=== PATIENT | female | born 1970 | race Caucasian/White ===

== ENCOUNTER 2017-01-19 01:34 | Emergency (ER) | payer OTHER ==
[~2017-01-19 01:34] MED LIST: ALBINS/ INH; DIPH-416 PO; DIPH25CA5 PO; EPP3/2 IM; LAMO150T32 PO; LEVE250T PO; LEVE500T26 PO; NAPR1TAB9 PO; ONDA8TAB62 SL
[2017-01-19 01:37] VITALS: TEMP 36.8
[2017-01-19] MEDS ORDERED: SODIUM CHLORIDE 0.9% 1000ML 500 ML IV STA (01:52)
[2017-01-19] MEDS ORDERED: SODIUM CHLORIDE 0.9% 1000ML 1,000 ML IV STA (01:52)
--- NOTE | 2017-01-19 02:00 | EMERGENCY ROOM VISIT NOTE ---
History Report prepared by Devanibtushar: Anisa Godoy Under the Supervision of: Dr. Brian Morillo M.D. First contact with patient: 01:43 Chief Complaint: CONFUSION Stated Complaint: CONFUSION/HIP AND HAND PAIN Nursing Triage Summary: patient is visually impaired and began walking to work around 2215 when she became disoriented and states she forgets what happened. patient called 911 at 0053 and was discovered crawling on the ground in a park behind her house. patient does not recall what happened and is unsure if she fell or had any LOC. patient currenlty alert to person and place. History of Present Illness The patient is a 46 year old female who presents to the Emergency Room with complaints of an episode of confusion that started last night. Nursing reports at approximately 2215, the patient left home to walk to [facility], where she works. At 0053, EMS was dispatched to a disoriented person crawling on the ground in a park. The patient had only made it to a park near her home. She is visually impaired and states she normally gets a ride to work, but missed it, so she was going to walk last night. She reports the events of last night and this morning are "fuzzy" and she still cannot remember everything that happened. She complains of a mild headache and pain in her right hip and wrist. She does not know if she hit her head or lost consciousness at all. She states she has felt well recently, just tired from working third shift. She has a history of seizures and states she still takes Keppra and Lamictal as prescribed. Source of History: patient, EMS, nursing staff History Limited By: other (confusion) Onset: 2214 this evening Position: other (global) Associated Symptoms: + fatigue, + headache Review of Systems See HPI for pertinent positives & negatives. A total of 10 systems reviewed and were otherwise negative. Past Medical & Surgical Medical Problems: (1) Dehydration Surgical Problems: (1) History of cholecystectomy Family History Diabetes mellitus Heart disease Hypertension Social History Smoking Status: Current Every Day Smoker Drug Use: none Marital Status: single Housing Status: lives alone Occupation Status: employed Current/Historical Medications Scheduled Albuterol Sulf (Proventil 0.083% 2.5MG/3ML), 2.5 MG INH QID PRN Epinephrine (Epipen), 0.3 MG IM UD Lamotrigine (Lamictal), 150 MG PO BID Levetiracetam (Keppra), 500 MG PO BID Scheduled PRN Diphenhydramine Hcl (Benadryl), 25 MG PO Q4H PRN for Itching Diphenoxylate/Atropine (Lomotil), 1 TAB PO QID PRN for Diarrhea Naproxen (Aleve), 220 MG PO Q12 PRN for Pain Ondansetron Odt (Zofran Odt), 8 MG SL BID PRN for Nausea Allergies Coded Allergies: Aspirin (Verified Allergy, Severe, stopped breathing per pt, 01/19/17) Bee Venom (Verified Allergy, Severe, ANAPHYLAXIS, 01/19/17) Codeine (Verified Allergy, Severe, difficulty breathing, 01/19/17) Erythromycin (Verified Allergy, Severe, anaphylaxis, 01/19/17) Flu Virus Vaccine (Verified Allergy, Severe, SEIZURES, 01/19/17) Ibuprofen (Verified Allergy, Severe, RESPIRATORY DIFFICULTY, 01/19/17) Penicillins (Verified Allergy, Severe, anaphylaxis, 01/19/17) Valproic Acid and Related (Verified Allergy, Severe, "LOCK JAW", 01/19/17) Ciprofloxacin (Verified Allergy, Intermediate, SEVERE RASH, FLUSHING, ) Sulfa Antibiotics (Verified Allergy, Intermediate, HIVES TO SULFA DRUGS, ) Latex1 -Allergic Contact Dermititis (Verified Allergy, Mild, "BREAK OUT", 01/19/17) Tomato (Verified Allergy, Unknown, Unknown, 01/19/17) Pt told RD about allergy to tomatoes during prior adm. Kitchen aware of allergy. Lorazepam (Verified Adverse Reaction, Intermediate, AGITATED, HALLUCINATIONS, 01/19/17) Morphine (Verified Adverse Reaction, Intermediate, AGITATED, HALLCINATIONS , 01/19/17) Terbutaline (Verified Adverse Reaction, Intermediate, PASSES OUT, 01/19/17) Acetaminophen (Verified Adverse Reaction, Unknown, AFFECTS LIVER FUNCTION , 01/19/17) Milk (Verified Adverse Reaction, Unknown, "DIARRHEA", 01/19/17) Pneumococcal Vaccine (Verified Adverse Reaction, Unknown, SEIZURE, 01/19/17) Tramadol (Verified Adverse Reaction, Unknown, cannot take d/t hx seizures , 01/19/17) Physical Exam Vital Signs Date Time Temp Pulse Resp B/P Pulse Ox O2 Delivery O2 Flow Rate FiO2 01/19/17 02:48 55 01/19/17 02:45 57 18 106/64 98 Room Air 01/19/17 02:02 68 20 101/59 96 Room Air 01/19/17 01:52 71 01/19/17 01:40 131/69 01/19/17 01:37 36.8 71 20 131/69 97 Room Air Physical Exam GENERAL: Patient is in no acute distress. HEENT: No acute trauma, normocephalic atraumatic, mucous membranes moist, no nasal congestion, no scleral icterus. No scalp hematoma. NECK: No stridor, no adenopathy, no meningismus, trachea is midline. No posterior c-spine tenderness. LUNGS: Wheezing bilaterally. Breath sounds are fairly full and equal, no respiratory distress. HEART: Without murmurs gallops or rubs, regular rate and rhythm. ABDOMEN: Soft, nontender, bowel sounds positive, no hernias, no peritonitis. EXTREMITIES: Brace on right wrist, no obvious deformity in RUE, right wrist is painful with movement. Painful to move and palpate the right hip, no gross deformity. Right knee is nontender. NEUROLOGIC: Oriented x 3, no acute motor or sensory deficits, no focal weakness. Amnesic to the events of this evening. SKIN: No rash, no jaundice, no diaphoresis. Medical Decision & Procedures ER Provider Diagnostic Interpretation: These CT scans were reviewed and interpreted by the radiologist and reviewed by myself. CT HEAD: Comparison: 01/24/2016 No evidence of acute infarct, hemorrhage, mass or edema. No acute osseous abnormality. Partial opacification of the right mastoid air cells. Minimal mucosal thickening in the paranasal sinuses. CT C SPINE: No evidence of fracture or malalignment of the cervical spine. Radiologist: Phill Garcia MD These X-Rays were reviewed and interpreted by myself as we do not have a radiologist on staff overnight. CHEST X-RAY No pneumonia, mediastinal widening or CHF seen on X-Ray. PELVIS X-RAY No pelvic fracture or hip fracture noted. RIGHT HIP X-RAY No hip dislocation or hip fracture seen on X-Ray. WRIST X-RAY No wrist fracture or dislocation seen on X-Ray. Laboratory Results 01/19/17 01:55 Red Blood Count 4.62, Mean Corpuscular Volume 92.2, Mean Corpuscular Hemoglobin 31.8, Mean Corpuscular Hemoglobin Concent 34.5, Mean Platelet Volume 11.2, Neutrophils (%) (Auto) 61.4, Lymphocytes (%) (Auto) 31.4, Monocytes (%) (Auto) 5.6, Eosinophils (%) (Auto) 1.3, Basophils (%) (Auto) 0.3, Neutrophils # (Auto) 4.20, Lymphocytes # (Auto) 2.15, Monocytes # (Auto) 0.38, Eosinophils # (Auto) 0.09, Basophils # (Auto) 0.02 01/19/17 01:55 Test 01/19/17 01:55 01/19/17 03:05 01/19/17 04:17 White Blood Count 6.84 K/uL (4.8-10.8) Red Blood Count 4.62 M/uL (4.2-5.4) Hemoglobin 14.7 g/dL (12.0-16.0) Hematocrit 42.6 % (37-47) Mean Corpuscular Volume 92.2 fL (80-100) Mean Corpuscular Hemoglobin 31.8 pg (25-34) Mean Corpuscular Hemoglobin Concent 34.5 g/dl (32-36) Platelet Count 176 K/uL (130-400) Mean Platelet Volume 11.2 fL (7.4-10.4) Neutrophils (%) (Auto) 61.4 % Lymphocytes (%) (Auto) 31.4 % Monocytes (%) (Auto) 5.6 % Eosinophils (%) (Auto) 1.3 % Basophils (%) (Auto) 0.3 % Neutrophils # (Auto) 4.20 K/uL (1.4-6.5) Lymphocytes # (Auto) 2.15 K/uL (1.2-3.4) Monocytes # (Auto) 0.38 K/uL (0.11-0.59) Eosinophils # (Auto) 0.09 K/uL (0-0.5) Basophils # (Auto) 0.02 K/uL (0-0.2) RDW Standard Deviation 44.2 fL (36.4-46.3) RDW Coefficient of Variation 13.2 % (11.5-14.5) Immature Granulocyte % (Auto) 0.0 % Immature Granulocyte # (Auto) 0.00 K/uL (0.00-0.02) Anion Gap 8.0 mmol/L (3-11) Estimated GFR () 129.9 Estimated GFR (Non- 112.1 BUN/Creatinine Ratio 31.7 (10-20) Calcium Level 8.0 mg/dl (8.5-10.1) Magnesium Level 2.0 mg/dl (1.8-2.4) Total Bilirubin 0.4 mg/dl (0.2-1) Aspartate Amino Transf (AST/SGOT) 16 U/L (15-37) Alanine Aminotransferase (ALT/SGPT) 25 U/L (12-78) Alkaline Phosphatase 73 U/L (45-117) Total Creatine Kinase 78 U/L (26-192) Total Protein 6.7 gm/dl (6.4-8.2) Albumin 3.5 gm/dl (3.4-5.0) Globulin 3.2 gm/dl (2.5-4.0) Albumin/Globulin Ratio 1.1 (0.9-2) Thyroid Stimulating Hormone (TSH) 1.830 uIu/ml (0.300-4.500) Urine Color DK YELLOW Urine Appearance CLOUDY (CLEAR) Urine pH 6.5 (4.5-7.5) Urine Specific [place] 1.029 (1.000-1.030) Urine Protein NEG (NEG) Urine Glucose (UA) NEG (NEG) Urine Ketones NEG (NEG) Urine Occult Blood NEG (NEG) Urine Nitrite NEG (NEG) Urine Bilirubin NEG (NEG) Urine Urobilinogen NEG (NEG) Urine Leukocyte Esterase NEG (NEG) Urine WBC (Auto) 1-5 /hpf (0-5) Urine RBC (Auto) 0-4 /hpf (0-4) Urine Hyaline Casts (Auto) 1-5 /lpf (0-5) Urine Epithelial Cells (Auto) >30 /lpf (0-5) Urine Bacteria (Auto) 4+ (NEG) Urine Pathogenic Casts /lpf (0) Urine Mucus PRESENT (NONE PRSENT) Urine Opiates Screen NEG (NEG) Urine Methadone, Qualitative NEG (NEG) Urine Barbiturates NEG (NEG) Urine Phencyclidine (PCP) Level NEG (NEG) Ur Amphetamine/Methamphetamine NEG (NEG) MDMA (Ecstasy) Screen NEG (NEG) Urine Benzodiazepines Screen NEG (NEG) Urine Cocaine Metabolite NEG (NEG) Urine Marijuana (THC) NEG (NEG) Laboratory results reviewed by me. Medications Administered Medications (Trade) Dose Ordered Sig/Mary Lou Route Start Time Stop Time Status Last Admin Dose Admin Sodium Chloride 500 ml @ 999 mls/hr Q31M STAT IV 01/19/17 01:52 01/19/17 02:22 DC 01/19/17 02:06 999 MLS/HR Sodium Chloride (Nss 1000ml) 1,000 ml @ 200 mls/hr Q5H STAT IV 01/19/17 01:52 01/19/17 06:51 01/19/17 02:06 200 MLS/HR ECG Indication: altered mental status Rate (beats per minute): 70 Rhythm: normal sinus (normal sinus rhythm) Findings: no acute ischemic change, no ectopy ED Course 0147: The patient was evaluated in room A2. A complete history and physical exam was performed. 0152: NSS 1000 ml @ 200 mls/hr IV, NSS 500 ml @ 999 mls/hr IV. 0412: I reevaluated the patient. She is feeling well and resting comfortably. 0415: I discussed the patients case with Dr. Kaufman, [facility]. He recommends checking her Lamictal and Keppra doses via blood work and also giving the patient an extra dose of Keppra here in the ED. Otherwise, she should be fine to go home. 0417: Keppra 500 mg PO. 0425: I reevaluated the patient. She is still feeling better. I discussed her results and discharge instructions and she verbalized complete understanding and agreement. Medical Decision The differential diagnoses considered include seizure, intracranial bleeding, stroke, dehydration, anemia, electrolyte imbalance and infection. There is no leukocytosis or concerning anemia. No significant electrolyte abnormality, kidney failure or hepatitis. The patient appears to be in a euthyroid state. A urinalysis shows contamination, no obvious infection. EKG shows a normal sinus rhythm, no acute ischemia. Brain CT shows no acute bleed or mass effect. C-spine CT shows no acute fracture. Right hip and pelvis films show no pelvic or hip fracture. Right wrist film shows no acute fracture. Urine tox was negative. Keppra and Lamictal levels are pending. The patient presents with an episode of confusion, based on her past history, she likely had a seizure and has amnesia because of the seizure event itself. She is now back to her normal mental state. She received IV saline, she did not want anything for pain. She has done well, she has no focal neurologic deficits. She is not toxic, she is not febrile. I spoke with the on-call neurologist. The patient was given 1 extra dose of oral Keppra, 500 mg. She is to continue her medications as prescribed. She is to follow with neurology this week in the office. The patient was felt stable for discharge, she was encouraged to return for worsening symptoms. She was anxious to be discharged home. Consults Time Called: [phone] Consulting Physician: [facility] Returned Call: [phone] I discussed the patients [facility] He recommends checking her Lamictal and Keppra doses via blood work and also giving the patient an extra dose of Keppra here in the ED. Otherwise, she should be fine to go home. Impression Primary Impression: Confusion Scribe Attestation The scribe's documentation has been prepared under my direction and personally reviewed by me in its entirety. I confirm that the note above accurately reflects all work, treatment, procedures, and medical decision making performed by me. Departure Information Dispostion Home / Self-Care Referrals Berny Sevilla MD (PCP) Patient Instructions My [facility] [employer] Additional Instructions stay well hydrated all meds as before tylenol for pain rest talk with neurology today about an appt and recheck return for worsening symptoms imaging and lab testing today was all ok
[2017-01-19 02:08] LABS: BASO % 0.3 %; BASO ABS # 0.02 K/uL (0-0.2); COMPLETE YES; EOS % 1.3 %; HEMATOCRIT 42.6 % (37-47); LYMPH % 31.4 %; LYMPH ABS # 2.15 K/uL (1.2-3.4); MEAN CELL VOLUME 92.2 fL (80-100); MEAN CORPUSCULAR HEMOGLOBIN 31.8 pg (25-34); MEAN CORPUSCULAR HGB CONC 34.5 g/dl (32-36); MEAN PLATELET VOLUME 11.2 fL (7.4-10.4); MONO % 5.6 %; NEUT % 61.4 %; PLATELET COUNT 176 K/uL (130-400); RED BLOOD COUNT 4.62 M/uL (4.2-5.4); WHITE BLOOD COUNT 6.84 K/uL (4.8-10.8)
[2017-01-19 02:31] LABS: ALT/SGPT 25 U/L (12-78); AST/SGOT 16 U/L (15-37); BLOOD UREA NITROGEN 18 mg/dl (7-18); BUN/CREATININE RATIO 31.7 (10-20); CARBON DIOXIDE 27 mmol/L (21-32); CHLORIDE 110 mmol/L (98-107); CREATININE 0.58 mg/dl (0.60-1.20); GLUCOSE 104 mg/dl (70-99); POTASSIUM 3.8 mmol/L (3.5-5.1); SODIUM 145 mmol/L (136-145)
[2017-01-19 02:41] LABS: ALB/GLOB RATIO 1.1 (0.9-2); ALKALINE PHOSPHATASE 73 U/L (45-117)
[2017-01-19] MEDS ORDERED: SODIUM CHLORIDE 0.9% 500ML 500 ML IV STA (03:01)
[2017-01-19] MEDS ORDERED: LEVE500T13 PO (03:11)
[2017-01-19 03:26] LABS: URINE APPEARANCE CLOUDY (CLEAR); URINE BILIRUBIN NEG (NEG); URINE COLOR DK YELLOW; URINE EPITHELIAL CELL AUTO >30 /lpf (0-5); URINE NITRITE NEG (NEG); URINE PH 6.5 (4.5-7.5); URINE SPECIFIC GRAVITY 1.029 (1.000-1.030); UROBILINOGEN NEG (NEG); ZZUR CULT IF INDIC CLEAN CATCH YES
[2017-01-19 03:31] LABS: MANUAL MICROSCOPIC REQUIRED? NO; REVIEW REQ? YES
[2017-01-19 03:51] LABS: URINE MUCUS PRESENT (NONE PRSENT)
[2017-01-19 04:05] LABS: BENZODIAZEPINE, URINE NEG (NEG); COCAINE,URINE NEG (NEG); PHENCYCLIDINE, URINE NEG (NEG)
[2017-01-19] MEDS ORDERED: LEVETIRACETAM 500 MG TAB PO STA (04:17)
[2017-01-19 04:55] VITALS: BP 128/80; PULSE 74; O2SAT 98
--- NOTE | 2017-01-19 06:34 | DIAGNOSTIC IMAGING REPORT ---
RIGHT WRIST W/NAVICULAR MIN 3 VIEWS CLINICAL HISTORY: fall, pain Right COMPARISON: None. DISCUSSION: The bones and joint spaces appear intact. There is no evidence of fracture, dislocation or bony disease. There is no evidence for soft tissue swelling. IMPRESSION: Negative study. Electronically signed by: Darvin Gay M.D. 01/19/2017 6:33 AM Dictated Date/Time: 01/19/2017 6:30 AM
--- NOTE | 2017-01-19 06:36 | DIAGNOSTIC IMAGING REPORT ---
CHEST ONE VIEW PORTABLE CLINICAL HISTORY: EVALUATE ALTERED MENTAL STATUS/WEAKNESS COMPARISON STUDY: No previous studies for comparison. FINDINGS: The bones soft tissues and hemidiaphragms are normal. The cardiomediastinal silhouette is normal. The lungs are clear. The pulmonary vasculature is normal. IMPRESSION: Negative chest. Electronically signed by: Darvin Gay M.D. 01/19/2017 6:35 AM Dictated Date/Time: 01/19/2017 6:34 AM
--- NOTE | 2017-01-19 06:45 | DIAGNOSTIC IMAGING REPORT ---
CERVICAL SPINE CT CT DOSE: HISTORY: Trauma fall, ams TECHNIQUE: Multiaxial CT images of the cervical spine were performed and reformatted in the sagittal and coronal plane without the use of contrast. COMPARISON: None. FINDINGS: No fractures. No subluxation. Prevertebral soft tissues and the C1-C2 interval are intact. No pneumothorax. Moderate degenerative disc change C6-C7 IMPRESSION: No fractures within the cervical spine. Moderate C6-C7 degenerative disc change Electronically signed by: Darvin Gay M.D. 01/19/2017 6:43 AM Dictated Date/Time: 01/19/2017 6:42 AM
--- NOTE | 2017-01-19 07:07 | DIAGNOSTIC IMAGING REPORT ---
PELVIS/UNILATERAL HIP 2-3VIEWS CLINICAL HISTORY: fall, pain trauma. Pain. COMPARISON: None. DISCUSSION: Moderate degenerative change right hip. No evidence for acetabular protrusion. There is no evidence for soft tissue swelling. IMPRESSION: Moderate degenerative change. No acute bony abnormality. Electronically signed by: Darvin Gay M.D. 01/19/2017 7:06 AM Dictated Date/Time: 01/19/2017 7:04 AM
--- NOTE | 2017-01-19 07:26 | DIAGNOSTIC IMAGING REPORT ---
HEAD CT NONCONTRAST CT DOSE: 1144.41 mGy.cm HISTORY: EVALUATE ALTERED MENTAL STATUS/WEAKNESS TECHNIQUE: Multiaxial CT images of the head were performed without the use of intravenous contrast. Automated exposure control was utilized for this study. Comparison: Head CT 01/24/2016. Findings: A few partially opacified right mastoid air cells. The calvarium and skull base are intact. The ventricles and sulci are within normal limits. There is no mass, hematoma, midline shift, or acute infarct. Impression: No acute intracranial abnormality. Electronically signed by: Jus Hoff M.D. 01/19/2017 7:24 AM Dictated Date/Time: 01/19/2017 7:23 AM
== END 2017-01-19 04:59 | disposition home or self-care (01) ==
LOC: EDBD 01:34 → C.EDA 01:35
DX: R41.0 Disorientation, unspecified (principal); M25.551 Pain in right hip; M25.531 Pain in right wrist; H54.7 Unspecified visual loss; R56.9 Unspecified convulsions; F17.200 Nicotine dependence, unspecified, uncomplicated; Z83.3 Family history of diabetes mellitus; Z82.49 Family history of ischemic heart disease and other diseases of the circulatory system

== ENCOUNTER 2017-04-10 13:16 | Emergency (ER) | payer OTHER ==
[~2017-04-10] VITALS: Ht 160 cm; Wt 98.0 kg
[~2017-04-10 13:16] MED LIST changes: -LEVE250T PO; +LEVE500T13 PO; -LEVE500T26 PO
[2017-04-10 13:21] VITALS: TEMP 36.7; Ht 160 cm; Wt 98.0 kg
[2017-04-10 13:45] VITALS: O2SAT 95
[2017-04-10 14:00] LABS: HEMATOCRIT 42.5 % (37-47); MEAN CELL VOLUME 90.6 fL (80-100); MEAN CORPUSCULAR HEMOGLOBIN 31.3 pg (25-34); MEAN CORPUSCULAR HGB CONC 34.6 g/dl (32-36); MEAN PLATELET VOLUME 11.7 fL (7.4-10.4); PLATELET COUNT 164 K/uL (130-400); RED BLOOD COUNT 4.69 M/uL (4.2-5.4); WHITE BLOOD COUNT 7.89 K/uL (4.8-10.8)
[2017-04-10 14:01] LABS: ALT/SGPT 32 U/L (12-78); BLOOD UREA NITROGEN 14 mg/dl (7-18); BUN/CREATININE RATIO 20.3 (10-20); CALCIUM 8.6 mg/dl (8.5-10.1); CARBON DIOXIDE 28 mmol/L (21-32); CHLORIDE 105 mmol/L (98-107); CREATININE 0.68 mg/dl (0.60-1.20); GLUCOSE 109 mg/dl (70-99); POTASSIUM 3.3 mmol/L (3.5-5.1); SODIUM 141 mmol/L (136-145)
[2017-04-10 14:05] LABS: ALB/GLOB RATIO 1.1 (0.9-2); ALKALINE PHOSPHATASE 76 U/L (45-117); AST/SGOT 15 U/L (15-37)
[2017-04-10 14:07] LABS: PROTHROMBIN TIME (PATIENT) 10.3 SECONDS (9.0-12.0)
--- NOTE | 2017-04-10 14:11 | DIAGNOSTIC IMAGING REPORT ---
CHEST ONE VIEW PORTABLE CLINICAL HISTORY: Atypical chest pain COMPARISON STUDY: 01/19/2017 FINDINGS: The cardiac and mediastinal contours remain stable. There are low lung volumes. There is no failure. There is no focal pulmonary consolidation. There are no pleural effusions.[ IMPRESSION: Low lung volumes. No acute findings. Electronically signed by: Jason Nagel M.D. 04/10/2017 2:10 PM Dictated Date/Time: 04/10/2017 2:10 PM
[2017-04-10] MEDS ORDERED: IBUP-1050 PO (15:06)
[2017-04-10] MEDS ORDERED: ONDANSETRON 8 MG/54 ML D5W IV STA (15:15)
[2017-04-10] MEDS ORDERED: SODIUM CHLORIDE 0.9% 1000ML 1,000 ML IV STA (15:15)
[2017-04-10] MEDS ORDERED: HYDROmorphone INJ 0.5 MG/0.5 ML SYR IV STA (15:35)
[2017-04-10 16:13] LABS: POINT OF CARE TROPONIN I < 0.030 ng/ml (0-0.045)
[2017-04-10] MEDS ORDERED: DiphenhydrAMINE HCL 50 MG/ML VIAL IV STA (17:34)
[2017-04-10 17:49] VITALS: BP 105/71; PULSE 67; O2SAT 95
--- NOTE | 2017-04-10 21:03 | EMERGENCY ROOM VISIT NOTE ---
History Report prepared by Sadia: John Steinberg Under the Supervision of: Dr. Blayne Sinha M.D. First contact with patient: 14:34 Chief Complaint: CHEST PAIN Stated Complaint: CHEST PAIN Nursing Triage Summary: PT HERE WITH CHEST PAIN, NAUSEA, PAIN WITH DEEP BREATHING X 45 MINUTES. PT NOT ABLE TO PROVIDE MANY DETAILS. HX OF SEIZURES AND OTHER CONDITIONS. HAS A SERVICE DOG. HAS NON PROD COUGH X A FEW WEEKS History of Present Illness The patient is a 46 year old female who presents to the Emergency Room with complaints of persistent right-sided chest pain that started around 2 and a half hour ago. Per the patient's family, the patient also felt very dizzy, nauseous and lightheaded, and felt like "things were moving around her like on a rocking boat". The patient then started having pain in her right arm. The patient states that she has no history of chest pain. She notes that her pain has not been getting any better, and the pain is worsened with deep breathing. She also had a headache earlier today, which went away. Any trauma was denied. She adds that she has been taking her daily medications. The patient has also had a non-productive cough for a few weeks. She says that she continues to be nauseous. The patient says that she has not been able to eat much today due to the nausea. She has no history of migraines, but says she has photophobia. The patient takes ibuprofen regularly, and cannot take Tylenol. Pt denies LOC, fevers, chills, diaphoresis, neck pain, vomiting, abdominal pain, back pain, melena, hematochezia, urinary symptoms, numbness, weakness, lymphadenopathy, rash, or other complaints. Source of History: patient, family Onset: 2 and a half hours ago Position: chest (right) Timing: other (persistent) Modifying Factors (Worsening): breathing (deep) Associated Symptoms: + headache, + cough, + nausea Note: Associated symptoms: Dizzy, lightheaded, right arm pain. Review of Systems See HPI for pertinent positives and negatives. A total of ten systems were reviewed and were otherwise negative. Past Medical & Surgical Medical Problems: (1) Dehydration Surgical Problems: (1) History of cholecystectomy Family History Diabetes mellitus Heart disease Hypertension Social History Smoking Status: Never Smoker Drug Use: none Marital Status: single Housing Status: lives alone Occupation Status: employed Current/Historical Medications Scheduled Albuterol Sulf (Proventil 0.083% 2.5MG/3ML), 2.5 MG INH QID PRN Epinephrine (Epipen), 0.3 MG IM UD Lamotrigine (Lamictal), 150 MG PO BID Levetiracetam (Keppra), 500 MG PO BID Scheduled PRN Diphenhydramine Hcl (Benadryl), 25 MG PO Q4H PRN for Itching Diphenoxylate/Atropine (Lomotil), 1 TAB PO QID PRN for Diarrhea Ibuprofen (Advil), 200-600 MG PO Q4H PRN for Pain Ondansetron Odt (Zofran Odt), 8 MG SL BID PRN for Nausea Allergies Coded Allergies: Aspirin (Verified Allergy, Severe, stopped breathing per pt, 04/10/17) Bee Venom (Verified Allergy, Severe, ANAPHYLAXIS, 04/10/17) Codeine (Verified Allergy, Severe, difficulty breathing, 04/10/17) Erythromycin (Verified Allergy, Severe, anaphylaxis, 04/10/17) Flu Virus Vaccine (Verified Allergy, Severe, SEIZURES, 04/10/17) Ibuprofen (Verified Allergy, Severe, RESPIRATORY DIFFICULTY, 04/10/17) Penicillins (Verified Allergy, Severe, anaphylaxis, 04/10/17) Valproic Acid and Related (Verified Allergy, Severe, "LOCK JAW", 04/10/17) Ciprofloxacin (Verified Allergy, Intermediate, SEVERE RASH, FLUSHING, 04/10) Sulfa Antibiotics (Verified Allergy, Intermediate, HIVES TO SULFA DRUGS, ) Latex1 -Allergic Contact Dermititis (Verified Allergy, Mild, "BREAK OUT", 04/10/17) Tomato (Verified Allergy, Unknown, Unknown, 04/10/17) Pt told RD about allergy to tomatoes during prior adm. Kitchen aware of allergy. Lorazepam (Verified Adverse Reaction, Intermediate, AGITATED, HALLUCINATIONS, 04/10/17) Morphine (Verified Adverse Reaction, Intermediate, AGITATED, HALLCINATIONS , 04/10/17) Terbutaline (Verified Adverse Reaction, Intermediate, PASSES OUT, 04/10/17) Acetaminophen (Verified Adverse Reaction, Unknown, AFFECTS LIVER FUNCTION , 04/10/17) Milk (Verified Adverse Reaction, Unknown, "DIARRHEA", 04/10/17) Pneumococcal Vaccine (Verified Adverse Reaction, Unknown, SEIZURE, 04/10/17 ) Tramadol (Verified Adverse Reaction, Unknown, cannot take d/t hx seizures , 04/10/17) Physical Exam Vital Signs Date Time Temp Pulse Resp B/P (MAP) Pulse Ox O2 Delivery O2 Flow Rate FiO2 04/10/17 17:49 67 17 105/71 95 Room Air 04/10/17 15:31 65 18 111/63 95 Room Air 04/10/17 14:41 66 16 94 Room Air 04/10/17 13:45 95 Room Air 04/10/17 13:45 95 Room Air 04/10/17 13:35 65 04/10/17 13:21 36.7 70 16 119/78 98 Room Air Physical Exam GENERAL: Awake, alert, well-appearing, in no distress HENT: Normocephalic, atraumatic. Oropharynx unremarkable. EYES: Normal conjunctiva. Sclera non-icteric. NECK: Supple. No nuchal rigidity. FROM. No JVD. RESPIRATORY: Clear to auscultation. CARDIAC: Regular rate, normal rhythm. Extremities warm and well perfused. Pulses equal. ABDOMEN: Soft, non-distended. No tenderness to palpation. No rebound or guarding. No masses. RECTAL: Deferred. MUSCULOSKELETAL: Chest examination reveals no tenderness. The back is symmetrical on inspection without obvious abnormality. There is no CVA tenderness to palpation. No joint edema. LOWER EXTREMITIES: Calves are equal size bilaterally and non-tender. No edema. No discoloration. NEURO: Normal sensorium. No sensory or motor deficits noted. SKIN: No rash or jaundice noted. Medical Decision & Procedures ER Provider Diagnostic Interpretation: X-ray: Per my interpretation, radiologist review. CHEST ONE VIEW PORTABLE CLINICAL HISTORY: Atypical chest pain COMPARISON STUDY: 01/19/2017 FINDINGS: The cardiac and mediastinal contours remain stable. There are low lung volumes. There is no failure. There is no focal pulmonary consolidation. There are no pleural effusions.[ IMPRESSION: Low lung volumes. No acute findings. Electronically signed by: Jason Nagel M.D. 04/10/2017 2:10 PM Dictated Date/Time: 04/10/2017 2:10 PM Laboratory Results 04/10/17 13:25 04/10/17 13:25 Test 6/23/17 13:25 04/10/17 15:57 Red Blood Count 4.69 M/uL (4.2-5.4) Mean Corpuscular Volume 90.6 fL (80-100) Mean Corpuscular Hemoglobin 31.3 pg (25-34) Mean Corpuscular Hemoglobin Concent 34.6 g/dl (32-36) RDW Standard Deviation 41.8 fL (36.4-46.3) RDW Coefficient of Variation 12.6 % (11.5-14.5) Mean Platelet Volume 11.7 fL (7.4-10.4) Prothrombin Time 10.3 SECONDS (9.0-12.0) Prothromb Time International Ratio 1.0 (0.9-1.1) Activated Partial Thromboplast Time 26.8 SECONDS (21.0-31.0) Partial Thromboplastin Ratio 1.0 Anion Gap 8.0 mmol/L (3-11) Est Creatinine Clear Calc Drug Dose 117.7 ml/min Estimated GFR () 123.3 Estimated GFR (Non- 106.4 BUN/Creatinine Ratio 20.3 (10-20) Calcium Level 8.6 mg/dl (8.5-10.1) Total Bilirubin 0.2 mg/dl (0.2-1) Aspartate Amino Transf (AST/SGOT) 15 U/L (15-37) Alanine Aminotransferase (ALT/SGPT) 32 U/L (12-78) Alkaline Phosphatase 76 U/L (45-117) Total Creatine Kinase 49 U/L (26-192) Creatine Kinase MB < 0.5 ng/ml (0.5-3.6) Creatine Kinase MB Ratio (0-3.0) Total Protein 6.5 gm/dl (6.4-8.2) Albumin 3.4 gm/dl (3.4-5.0) Globulin 3.1 gm/dl (2.5-4.0) Albumin/Globulin Ratio 1.1 (0.9-2) Bedside D-Dimer 126 ng/mlFEU (0-450) Bedside Troponin I < 0.030 ng/ml (0-0.045) Laboratory results reviewed by me Medications Administered Medications (Trade) Dose Ordered Sig/Mary Lou Route Start Time Stop Time Status Last Admin Dose Admin Ondansetron HCl (Zofran 8mg Iv) 8 mg NOW STAT IV 04/10/17 15:15 04/10/17 15:16 DC 04/10/17 15:30 8 MG Sodium Chloride 1,000 ml @ 999 mls/hr Q1H1M STAT IV 04/10/17 15:15 04/10/17 16:15 DC 04/10/17 15:30 999 MLS/HR Hydromorphone HCl (Dilaudid Inj) 0.5 mg NOW STAT IV 04/10/17 15:35 04/10/17 15:36 DC 04/10/17 15:52 0.5 MG Diphenhydramine HCl (Benadryl Inj) 25 mg NOW STAT IV 04/10/17 17:34 04/10/17 17:36 DC 04/10/17 17:47 25 MG ECG Indication: chest pain Rate (beats per minute): 73 Rhythm: normal sinus Findings: no acute ischemic change, no ectopy ED Course 1510: The patient was evaluated in room A12B. A complete history and physical exam was performed. 1515: Ordered NSS 1000 ml @ 999 mls/hr IV, Zofran 8 mg IV. 1535: Ordered Dilaudid Inj 0.5 mg IV. 1734: Ordered Benadryl Inj 25 mg IV. 1813: I reevaluated the patient and she is feeling better and wants to go home. She will follow up with her primary care physician. The patient verbally expressed understanding and agreement of the treatment plan. The patient will be discharged. Medical Decision Medication Reconciliation: I attest that I have personally reviewed the patient' s current medication list. Blood pressure screening: Patient was found to have normal blood pressure on screening and does not require follow-up. Triage Nursing notes reviewed. The patient's presentation and history were concerning for chest pain, cough. Etiologies such as cardiac ischemia, aortic dissection, pulmonary embolism, pneumonia, pneumothorax, musculoskeletal, infections, gastrointestinal, as well as others were entertained. The patient was evaluated. Clinically she was doing well. ECG was unremarkable. CBC, chemistry panel and troponin were normal. Chest imaging was unremarkable. Patient was given Zofran and saline hydration. She was doing well with this. She did request analgesia. She was given a small dose of IV Dilaudid. On reassessment she felt much better. Her repeat troponin and d-dimer were unremarkable. I have a low suspicion for cardiac pathology. Further imaging regarding pulmonary embolism was felt to be unnecessary. The patient felt much better as her symptoms have now abated. This may be musculoskeletal or somewhat pleuritic as she has had a cough recently. There is no evidence of pneumonia. I discussed conservative management with the patient and she felt very comfortable with this. She will follow-up as an outpatient or return to the Emergency Room if she worsens. By the evaluation outlined above other emergent etiologies such as those listed in the differential, as well as others, were deemed relatively unlikely. The patient was educated about the findings as listed above. All questions were answered and the patient was pleased with the treatment. Return instructions were outlined and the patient was discharged in stable condition. The patient was referred to her PCP for follow-up for a recheck of the current condition. Impression Primary Impression: Substernal chest pain Additional Impression: Nausea Scribe Attestation The scribe's documentation has been prepared under my direction and personally reviewed by me in its entirety. I confirm that the note above accurately reflects all work, treatment, procedures, and medical decision making performed by me. Departure Information Dispostion Home / Self-Care Referrals Berny Sevilla MD (PCP) Forms HOME CARE DOCUMENTATION FORM, IMPORTANT VISIT INFORMATION Patient Instructions My [facility] Additional Instructions CHEST PAIN INSTRUCTIONS: Ibuprofen(Motrin, Advil) may be used for fever or pain. Use 600mg every six hours as needed. Take with food. Avoid using more than 2400mg in a 24 hour period. Do not use 2400mg per day for more than three consecutive days without physician direction. Prolonged inappropriate use can lead to stomach upset or ulcers. Rest and drink plenty of fluids as tolerated. Continue current medications. Avoid strenuous activities and anything that worsens your pain. Resume normal activities once your symptoms resolve. Return to the ER immediately for worsening or persistent chest pain, abdominal pain, vomiting, fevers, chest pains, difficulty breathing, worsening of your condition, or as needed. Follow up with your primary physician in 3 days for a recheck of your current condition. Problem Qualifiers
== END 2017-04-10 18:18 | disposition home or self-care (01) ==
LOC: EDBD 13:16 → C.EDA 13:16
DX: R07.2 Precordial pain (principal); R11.0 Nausea; R42 Dizziness and giddiness; R05 Cough; Z90.49 Acquired absence of other specified parts of digestive tract; Z83.3 Family history of diabetes mellitus; Z82.49 Family history of ischemic heart disease and other diseases of the circulatory system

== ENCOUNTER 2019-11-10 15:08 | Observation (INO) ==
--- NOTE | 2019-11-10 15:51 | Emergency Department Note ---
Entered by Jamila Whyte acting as a scribe for History of Present Illness General Chief complaint: Neuro Symptoms/Deficit Time Seen by Provider: 11/10/19 15:33 Source: patient and other (caregiver) History of Present Illness Onset (ago): day(s) (1999 yesterday) Location: head, mouth (right side) and right (extremity) Severity: moderate (headache) Maximum Pain Intensity: 6 Quality: + other (neuro symptoms) Associated symptoms: + confusion, + headaches (moderate) and + other (Positive drooling, tingling to the right side of her mouth, right extremity numbness and weakness, slurring of speech ) The patient is a 49 year old female who presents to the ED with complaints of neuro symptoms. When asked why she is at the ED today, the patient reports she has "too many things going on right now" while pointing to the right side of her face. She states she has tingling on the right side of her mouth and she is drooling. She states the right side of her face feels like she received a shot of novocaine. The patient has a moderate headache and she feels foggy. The patient is accompanied by her caregiver who reports the patient's last known well as at 1999 yesterday. Her caregiver states at 1400 today, the patient was slurring her speech and complaining of weakness and numbness to her right extremity. Her PCP is Dr. Sevilla [facility]. Home Medications Home Medications Medication Instructions Recorded Confirmed Type albuterol sulfate 2.5 mg INHALATION Q4 PRN 09/06/18 11/10/19 History diphenhydramine HCl [Benadryl] 25 mg PO Q4H PRN 09/06/18 11/10/19 History diphenoxylate-atropine [Lomotil] 1 tab PO QID PRN 09/06/18 11/10/19 History epinephrine [EpiPen] 0.3 mg IM Q3H PRN 09/06/18 11/10/19 History ondansetron 8 mg PO Q12H PRN 09/06/18 11/10/19 History levetiracetam 500 mg tablet 500 mg PO BID #60 tab 07/25/19 11/10/19 Rx rizatriptan 10 mg disintegrating 10 mg PO .COMPLEX #12 tab MDD 30 mg 10/10/19 11/10/19 Rx tablet lamotrigine 150 mg tablet 150 mg PO BID 30 Days #60 tab 10/17/19 11/10/19 Rx albuterol sulfate 2 inh INHALATION Q4 PRN 11/10/19 11/10/19 History naproxen sodium [Aleve] 440 mg PO BID PRN 11/10/19 11/10/19 History tizanidine 4 mg PO BID PRN 11/10/19 11/10/19 History Allergies Allergy/AdvReac Type Severity Reaction Status Date / Time aspirin Allergy Severe stopped Verified 11/10/19 17:16 breathing per pt bee venom protein (honey bee) Allergy Severe ANAPHYLAXIS Verified 11/10/19 17:16 codeine Allergy Severe difficulty Verified 11/10/19 17:16 breathing erythromycin base Allergy Severe anaphylaxis Verified 11/10/19 17:16 ibuprofen Allergy Severe RESPIRATORY Verified 11/10/19 17:16 DIFFICULTY Penicillins Allergy Severe anaphylaxis Verified 11/10/19 17:16 valproic acid Allergy Severe "LOCK JAW" Verified 11/10/19 17:16 Cipro Allergy Intermediate SEVERE Verified 04/10/17 15:05 RASH, FLUSHING ciprofloxacin Allergy Intermediate SEVERE Verified 11/10/19 17:16 RASH, FLUSHING Sulfa (Sulfonamide Allergy Intermediate HIVES TO Verified 11/10/19 17:16 Antibiotics) SULFA DRUGS latex Allergy Mild "BREAK OUT" Verified 11/10/19 17:16 tomato Allergy Unknown Unknown Verified 11/10/19 17:16 lorazepam AdvReac Intermediate AGITATED, Verified 11/10/19 17:16 HALLUCINATIONS morphine AdvReac Intermediate AGITATED, Verified 11/10/19 17:16 HALLCINATIONS terbutaline AdvReac Intermediate PASSES OUT Verified 11/10/19 17:16 acetaminophen AdvReac Unknown AFFECTS Verified 11/10/19 17:16 LIVER FUNCTION milk AdvReac Unknown "DIARRHEA" Verified 11/10/19 17:16 pneumococcal vaccine AdvReac Unknown SEIZURE Verified 11/10/19 17:16 tramadol AdvReac Unknown cannot Verified 11/10/19 17:16 take d/t hx seizures Flu Virus Vaccine Allergy Severe SEIZURES Uncoded 11/10/19 17:16 Past Med/Surg History Medical History Asthma (Chronic) Bipolar disorder (Chronic 09/19/11) Convulsions, epileptic (Chronic) Dizziness (Chronic) Headache (Chronic 09/19/11) IBS (irritable bowel syndrome) (Chronic) Legal blindness (Chronic 09/19/11) Legal blindness (Chronic) Migraine (Chronic) Post concussion syndrome (Chronic) Posttraumatic stress disorder (Chronic 09/19/11) Pseudoseizure (Chronic) Seizure disorder (Chronic) Seizure disorder (Chronic) Tobacco use (Chronic) Surgical History History of cholecystectomy (Resolved) History of cholecystectomy (Resolved) S/P laparoscopic hysterectomy (Resolved) Family History Father Diabetes Hypertension Skin cancer (melanoma) Mother Cancer Other No pertinent family history Social History Preferred Language: Kazakh Hearing Ability: Hard of Hearing marital status: Current Living Situation: Other Current Living Situation Comment: roommate current occupational status: employed Feels Safe at Home: Yes Smoking Status: Current every day smoker Review of Systems See HPI for pertinent positives & negatives. and A total of 10 systems reviewed and were otherwise negative Physical Exam Vital Signs Vital Signs - 24 hr 11/10/19 15:15 11/10/19 15:21 11/10/19 15:30 Temperature 36.8 C Temperature Source Oral Pulse Rate 73 77 73 Pulse Rate [Left Finger] Pulse Rate from SpO2 Sensor 72 Respiratory Rate 28 H 15 16 Blood Pressure 103/71 Blood Pressure [Right Arm] Blood Pressure Mean 74 Blood Pressure Mean [Right Arm] Pulse Oximetry 98 Oxygen Delivery Method Room Air Sepsis Recent Fever Within 48 Hours No Sepsis Action Taken by Nursing No Action Required 11/10/19 15:45 11/10/19 16:00 11/10/19 16:30 Temperature Temperature Source Pulse Rate 67 68 Pulse Rate [Left Finger] Pulse Rate from SpO2 Sensor Respiratory Rate 16 20 Blood Pressure 105/69 Blood Pressure [Right Arm] Blood Pressure Mean 78 Blood Pressure Mean [Right Arm] Pulse Oximetry 98 Oxygen Delivery Method Room Air Sepsis Recent Fever Within 48 Hours Sepsis Action Taken by Nursing 11/10/19 16:31 11/10/19 17:00 11/10/19 17:01 Temperature Temperature Source Pulse Rate 64 68 65 Pulse Rate [Left Finger] 65 Pulse Rate from SpO2 Sensor Respiratory Rate 14 20 24 Blood Pressure 95/65 L Blood Pressure [Right Arm] 95/65 L Blood Pressure Mean 77 Blood Pressure Mean [Right Arm] 75 Pulse Oximetry 98 Oxygen Delivery Method Sepsis Recent Fever Within 48 Hours Sepsis Action Taken by Nursing VITAL SIGNS: were reviewed as above. GENERAL:Non-toxic in appearance. SKIN: Warm dry and pink. HEAD: Normocephalic and atraumatic. OROPHARYNX: Is clear and moist NECK: Supple without lymphadenopathy or meningismus. LUNGS: clear. HEART: Regular rate and rhythm. ABDOMEN: Soft and nontender. EXTREMITIES: Warm and well perfused. NEUROLOGICALLY: Awake alert and oriented without focal deficit. Cranial nerves 2-12 are intact. There is no pronator drift. Cerebellar testing is within normal limits. There is no nystagmus. There is no facial droop. Speech is clear. Vision is grossly normal. Decreased sensation right face compared to left. Slight pronator drift right arm. MUSCULOSKELETAL: Good muscle tone. No evidence of trauma. Course Course 1535: Previous medical records were reviewed. The patient was evaluated in room C8. A complete history and physical examination was performed. 172: On reevaluation, the patient is feeling slighly better. I discussed the results and findings with her. She verbalized agreement of the treatment plan. I spoke with Ilya Alvarez for [facility]. The patient will be evaluated for further management and care. Administered Medications Medical Decision Making Differential Diagnosis Differential diagnosis: Etiologies such as metabolic, infection, hypo/hyperglycemia, electrolyte abnormalities, cardiac sources, intracerebral event, toxicologic, neurologic, as well as others were entertained. Medical Records Attestation: I reviewed the patient's medical records. Home Medications Current Medication List: was personally reviewed by me Laboratory Data Attestation: I reviewed the patient's lab results. Result diagrams: 11/10/19 15:35 11/10/19 15:35 Lab Results 11/10/19 11/10/19 11/10/19 Range/Units 15:35 15:35 15:35 WBC 6.05 (4.8-10.8) K/uL RBC 5.02 (4.2-5.4) M/uL Hgb 16.0 (12.0-16.0) g/dL Hct 46.6 (37-47) % MCV 92.8 (80-100) fL MCH 31.9 (25-34) pg MCHC 34.3 (32-36) g/dL RDW Std Deviation 44.5 (36.4-46.3) fL RDW Coeff of Raza 13.2 (11.5-14.5) % Plt Count 195 (130-400) K/uL MPV 10.3 (7.4-10.4) fL Immature Gran % (Auto) 0.2 % Neut % (Auto) 61.9 % Lymph % (Auto) 28.1 % Cannon % (Auto) 7.3 % Eos % (Auto) 1.8 % Baso % (Auto) 0.7 % Immature Gran # (Auto) 0.01 (0.00-0.02) K/uL Neut # (Auto) 3.75 (1.4-6.5) K/uL Lymph # (Auto) 1.70 (1.2-3.4) K/uL Cannon # (Auto) 0.44 (0.11-0.59) K/uL Eos # (Auto) 0.11 (0-0.5) K/uL Baso # (Auto) 0.04 (0-0.2) K/uL PT 9.9 (9.0-12.0) Seconds INR 1.0 (0.9-1.1) Sodium 138 (136-145) mmol/L Potassium 3.8 (3.5-5.1) mmol/L Chloride 107 (98-107) mmol/L Carbon Dioxide 28 (21-32) mmol/L Anion Gap 3.0 (3-11) BUN 10 (7-18) mg/dl Creatinine 0.69 (0.6-1.2) mg/dl Est Cr Clr Drug Dosing 111.3 ml/min Est GFR ( Amer) 120.1 Est GFR (Non-Af Amer) 103.7 BUN/Creatinine Ratio 14.9 (10-20) Glucose 109 H (70-99) mg/dl Calcium 8.6 (8.5-10.1) mg/dl Total Bilirubin 0.4 (0.2-1) mg/dl AST 11 L (15-37) U/L ALT 16 (12-78) U/L Alkaline Phosphatase 74 (45-117) U/L Total Creatine Kinase 42 (26-192) U/L Troponin I < 0.015 (0-0.045) ng/ml Total Protein 7.5 (6.4-8.2) gm/dl Albumin 3.6 (3.4-5.0) gm/dl Globulin 3.9 (2.5-4.0) gm/dl Albumin/Globulin Ratio 0.9 (0.9-2) TSH 1.770 (0.300-4.500) uIu/ml Imaging Data Radiologist's Impression: Radiology results as stated below per my review and the radiologist's interpretation: CT head/brain wo con CLINICAL HISTORY: 49 years-old Female presenting with weakness right sided. TECHNIQUE: Multidetector CT imaging of the head was performed without the use of intravenous contrast. IV contrast: None. One or more dose lowering techniques were used consistent with the principles of ALARA (as low as reasonably achievable), including automatic exposure control, mA or kV adjustment to indiv idual patient size, and/or use of iterative reconstruction. COMPARISON: 09/06/2018. CT DOSE (mGy.cm): The estimated cumulative dose is 1612.45 mGy.cm. 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 Ventricles and sulci normal in size. No hemorrhage. Brain parenchyma normal in appearance with preserved rodríguez-white differentiation. No acute territorial infarct. No mass effect or midline shift. No extra-axial fluid collection. Paranasal sinuses and mastoid air cells clear. Calvarium intact. IMPRESSION: 1. No acute intracranial abnormality. ACT 112: Negative or not required by law. Electronically signed by: Nba Lowery M.D. 11/10/2019 4:21 PM XR chest 1V portable CLINICAL HISTORY: 49 years-old Female presenting with weakness. TECHNIQUE: Portable upright AP view of the chest was obtained. COMPARISON: 09/06/2019. FINDINGS: Cardiomediastinal silhouette normal. No focal opacity. No large effusion or pneumothorax. Osseous structures normal. Cholecystectomy clips noted. IMPRESSION: 1. No acute cardiopulmonary disease. ACT 112: Negative or not required by law. Electronically signed by: Nba Lowery M.D. 11/10/2019 4:13 PM ECG Data Attestation: I personally reviewed and interpreted this ECG as follows: Indication: + other (neuro symptoms) Rate (beats per minute): 68 Rhythm: + normal sinus ECG ST segments: no ST elevation ECG Findings: no PVCs Blood Pressure Blood Pressure Findings: Normal blood pressure Blood Pressure Disposition: further management by hospitalist MDM Narrative This is a 49-year-old female who presents to the ED with a chief complaint of slurred speech and numbness in the right face and weakness in the right side. The patient was last known well yesterday evening around 8 PM. She called her home caregiver around 2:20 PM today and her speech seemed to be slurred. When the caregiver saw her, she seemed to be walking different as if weak on the right side. The patient states that she has some numbness in the right side of her face and feels foggy in the head. She also reports that her right side feels weaker than usual. The patient's vital signs are normal. Her physical exam reveals some subjective numbness in the right face compared to the left. She also seems to have a little more weakness in the right arm compared to left. The legs both seem to be a little weak. She has no facial droop. No other abnormal findings on my exam. Her vital signs are normal. A CT scan of the brain was negative for acute disease. CBC and chemistry panel was unremarkable. Troponin was negative and a TSH was normal. Chest x-ray was negative for acute disease. EKG shows a normal sinus rhythm. The patient is allergic to aspirin as well as a multitude of other things. She does have a history of bipolar and pseudoseizures although she has not had a seizure recently. The patient may have had a TIA/CVA. She will be seen in the hospital for further evaluation by the hospitalist service. A stroke alert was not called as the time of onset was at least 16 hours and some of the symptoms may have improved since onset. She was not felt to be a thrombolytic candidate based on her symptoms and time of onset. Impression & Plan CVA (cerebral vascular accident) Discharge Plan Visit Data Chief Complaint: Neuro Symptoms/Deficit ED Provider: Rocky Toribio Discharge Problem: CVA (cerebral vascular accident) Patient Disposition: Being Evaluated by Hospitalist Forms Stand Alone Forms: My [facility] Prescriptions Prescriptions: No Action levetiracetam 500 mg tablet 500 mg PO BID Qty: 60 RF: 5 rizatriptan 10 mg tablet,disintegrating 10 mg PO .COMPLEX MDD 30 mg Qty: 12 RF: 2 lamotrigine 150 mg tablet 150 mg PO BID 30 Days Qty: 60 RF: 0 albuterol sulfate 2.5 mg /3 mL (0.083 %) solution for nebulization 2.5 mg Inhalation Q4 PRN (Reason: Shortness Of Breath Or Wheezing) RF: 0 diphenoxylate-atropine [Lomotil] 2.5-0.025 mg Tablet 1 tab PO QID PRN (Reason: Loose Stool) RF: 0 ondansetron 8 mg tablet,disintegrating 8 mg PO Q12H PRN (Reason: Nausea) RF: 0 diphenhydramine HCl [Benadryl] 25 mg Capsule 25 mg PO Q4H PRN (Reason: Allergy Symptoms) RF: 0 epinephrine [EpiPen] 0.3 mg/0.3 mL Auto-Injector 0.3 mg IM Q3H PRN (Reason: Allergic Reaction) RF: 0 tizanidine 4 mg tablet 4 mg PO BID PRN (Reason: MUSCLE SPASMS) RF: 0 naproxen sodium [Aleve] 220 mg Tablet 440 mg PO BID PRN (Reason: Pain) RF: 0 albuterol sulfate 90 mcg/actuation Hfa Aerosol Inhaler 2 inh INHALATION Q4 PRN (Reason: Wheezing) RF: 0 Referrals Referrals: Berny Sevilla MD [Primary Care Provider] - Discharge Problem: CVA (cerebral vascular accident) Qualifiers: CVA mechanism: unspecified Qualified Code(s): I63.9 - Cerebral infarction, unspecified The scribe's documentation has been prepared under my direction and personally reviewed by me in its entirety. I confirm that the note above accurately reflects all work, treatment, procedures, and medical decision making performed by me.
[2019-11-10 16:00] LABS: Basophils # (auto) 0.04 K/uL (0-0.2); Basophils % (auto) 0.7 %; Eosinophils # (auto) 0.11 K/uL (0-0.5); Eosinophils % (auto) 1.8 %; Hematocrit (blood only) 46.6 % (37-47); Immature Granulocytes # (auto) 0.01 K/uL (0.00-0.02); Immature Granulocytes % (auto) 0.2 %; Lymphocytes % (auto) 28.1 %; Mean Corpuscular Hemoglobin 31.9 pg (25-34); Mean Corpuscular Hgb Conc 34.3 g/dL (32-36); Mean Corpuscular Volume 92.8 fL (80-100); Mean Platelet Volume 10.3 fL (7.4-10.4); Monocytes # (auto) 0.44 K/uL (0.11-0.59); Monocytes % (auto) 7.3 %; Neutrophils # (auto) 3.75 K/uL (1.4-6.5); Neutrophils % (auto) 61.9 %; Platelet Count 195 K/uL (130-400); RDW Coefficient of Variation 13.2 % (11.5-14.5); RDW Standard Deviation 44.5 fL (36.4-46.3); Red Blood Count 5.02 M/uL (4.2-5.4); White Blood Count 6.05 K/uL (4.8-10.8)
[2019-11-10 16:08] LABS: Alanine Aminotransferase 16 U/L (12-78); Albumin Level 3.6 gm/dl (3.4-5.0); Aspartate Aminotransferase 11 U/L (15-37); BUN Creatinine Ratio 14.9 (10-20); Blood Urea Nitrogen 10 mg/dl (7-18); Calcium 8.6 mg/dl (8.5-10.1); Carbon Dioxide 28 mmol/L (21-32); Chloride 107 mmol/L (98-107); Creatinine Clr Calc Pharmacy 111.3 ml/min; Est GFR (African American) 120.1; Est GFR (Non-African American) 103.7; Glucose 109 mg/dl (70-99); Potassium 3.8 mmol/L (3.5-5.1); Sodium 138 mmol/L (136-145)
[2019-11-10 16:12] LABS: Prothrombin Time 9.9 Seconds (9.0-12.0)
--- NOTE | 2019-11-10 16:14 | XRay Report ---
XR chest 1V portable CLINICAL HISTORY: 49 years-old Female presenting with weakness. TECHNIQUE: Portable upright AP view of the chest was obtained. COMPARISON: 09/06/2019. FINDINGS: Cardiomediastinal silhouette normal. No focal opacity. No large effusion or pneumothorax. Osseous str uctures normal. Cholecystectomy clips noted. IMPRESSION: 1. No acute cardiopulmonary disease. ACT 112: Negative or not required by law. Electronically signed by: Nba Lowery M.D. 11/10/2019 4:13 PM
[2019-11-10 16:18] LABS: Albumin Globulin Ratio 0.9 (0.9-2); Alkaline Phosphatase 74 U/L (45-117); Bilirubin,Total 0.4 mg/dl (0.2-1); Creatine Kinase 42 U/L (26-192); Globulin 3.9 gm/dl (2.5-4.0); Total Protein 7.5 gm/dl (6.4-8.2); Troponin I < 0.015 ng/ml (0-0.045)
--- NOTE | 2019-11-10 16:22 | CT Scan Report ---
CT head/brain wo con CLINICAL HISTORY: 49 years-old Female presenting with weakness right sided. TECHNIQUE: Multidetector CT imaging of the head was performed without the use of intravenous contrast . IV contrast: None. One or more dose lowering techniques were used consistent with the principles of ALARA (as low as reasonably achievable), including automatic exposure control, mA or kV adjustment t o individual patient size, and/or use of iterative reconstruction. COMPARISON: 09/06/2018. CT DOSE (mGy.cm): The estimated cumulative dose is 1612.45 mGy.cm. 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 Ventricles and sulci normal in size. No hemorrhage. Brain parenchyma normal in appearance with preser frederic rodríguez-white differentiation. No acute territorial infarct. No mass effect or midline shift. No ext ra-axial fluid collection. Paranasal sinuses and mastoid air cells clear. Calvarium intact. IMPRESSION: 1. No acute intracranial abnormality. ACT 112: Negative or not required by law. Electronically signed by: Nba Lowery M.D. 11/10/2019 4:21 PM
[2019-11-10 18:04] LABS: Appearance Urine Clear (Clear); Bilirubin Urine Negative (Negative); Blood Urine Negative (Negative); Color Urine Dark Yellow; Glucose Urine UA Negative (Negative); Ketones Urine Negative (Negative); Leukocyte Esterase Urine Negative (Negative); Nitrite Urine Negative (Negative); Protein Urine Negative (Negative); Specific Gravity Urine 1.023 (1.000-1.030); Urobilinogen Urine Negative (Negative); pH Urine 7.5 (4.5-7.5)
--- NOTE | 2019-11-10 18:04 | History & Physical Report ---
Date of Service November 10, 2019 Assessment & Plan (1) Stroke-like symptoms: -Admit to telemetry -Patient presenting from home with reports of right-sided facial droop, drooling, slurred speech/word finding, right-sided weakness -In the ED, head CT negative for acute findings, labs unremarkable, patient hemodynamically stable -Risk factors for CVA: Smoking -Given ongoing symptoms, will start patient on Plavix 75 mg (noted allergy to aspirin) -Brain MRI, CTA head and neck -Resting echo -Neurochecks -Neuro consult, input appreciated (2) Seizure disorder: -Continue home doses of Keppra and Lamictal (3) DVT prophylaxis: -SQ Lovenox History of Present Illness Chief Complaint: slurred speech, facial droop, right sided weakness Primary Care Provider: Berny Sevilla MD 49 year old female who presents to the ED with reports of slurred speech, right sided facial droop and numbness, and right sided weakness. Patient reports she woke up very early this morning and did not feel right. She reports the right side of her mouth was drooping, had numbness, and she was drooling. She called her caregiver who noted that her voice did not sound right and she had trouble getting her words out. When the caregiver arrived, she noted that the patient was weak on her right side. Patient then presented to the ED for further evaluation. Patient reports that while walking to the bathroom last evening, she tripped over her service dog. She did not strike her head and denies any loss of consciousness. Patient reports she otherwise has been feeling well recently. No chest pain or shortness of breath. Denies lightheadedness, dizziness, diaphoresis. No abdominal pain, nausea, vomiting, diarrhea. She denies any urinary symptoms. In the ED, labs are unremarkable and head CT is negative for acute findings. Patient has remained hemodynamically stable. Allergies Allergy/AdvReac Type Severity Reaction Status Date / Time aspirin Allergy Severe stopped Verified 11/10/19 17:16 breathing per pt bee venom protein (honey bee) Allergy Severe ANAPHYLAXIS Verified 11/10/19 17:16 codeine Allergy Severe difficulty Verified 11/10/19 17:16 breathing erythromycin base Allergy Severe anaphylaxis Verified 11/10/19 17:16 ibuprofen Allergy Severe RESPIRATORY Verified 11/10/19 17:16 DIFFICULTY Penicillins Allergy Severe anaphylaxis Verified 11/10/19 17:16 valproic acid Allergy Severe "LOCK JAW" Verified 11/10/19 17:16 Cipro Allergy Intermediate SEVERE Verified 04/10/17 15:05 RASH, FLUSHING ciprofloxacin Allergy Intermediate SEVERE Verified 11/10/19 17:16 RASH, FLUSHING Sulfa (Sulfonamide Allergy Intermediate HIVES TO Verified 11/10/19 17:16 Antibiotics) SULFA DRUGS latex Allergy Mild "BREAK OUT" Verified 11/10/19 17:16 tomato Allergy Unknown Unknown Verified 11/10/19 17:16 lorazepam AdvReac Intermediate AGITATED, Verified 11/10/19 17:16 HALLUCINATIONS morphine AdvReac Intermediate AGITATED, Verified 11/10/19 17:16 HALLCINATIONS terbutaline AdvReac Intermediate PASSES OUT Verified 11/10/19 17:16 acetaminophen AdvReac Unknown AFFECTS Verified 11/10/19 17:16 LIVER FUNCTION milk AdvReac Unknown "DIARRHEA" Verified 11/10/19 17:16 pneumococcal vaccine AdvReac Unknown SEIZURE Verified 11/10/19 17:16 tramadol AdvReac Unknown cannot Verified 11/10/19 17:16 take d/t hx seizures Flu Virus Vaccine Allergy Severe SEIZURES Uncoded 11/10/19 17:16 Home Medications Home Medications Medication Instructions Recorded Confirmed Type albuterol sulfate 2.5 mg INHALATION Q4 PRN 09/06/18 11/10/19 History diphenhydramine HCl [Benadryl] 25 mg PO Q4H PRN 09/06/18 11/10/19 History diphenoxylate-atropine [Lomotil] 1 tab PO QID PRN 09/06/18 11/10/19 History epinephrine [EpiPen] 0.3 mg IM Q3H PRN 09/06/18 11/10/19 History ondansetron 8 mg PO Q12H PRN 09/06/18 11/10/19 History levetiracetam 500 mg tablet 500 mg PO BID #60 tab 07/25/19 11/10/19 Rx rizatriptan 10 mg disintegrating 10 mg PO .COMPLEX #12 tab MDD 30 mg 10/10/19 11/10/19 Rx tablet lamotrigine 150 mg tablet 150 mg PO BID 30 Days #60 tab 10/17/19 11/10/19 Rx albuterol sulfate 2 inh INHALATION Q4 PRN 11/10/19 11/10/19 History naproxen sodium [Aleve] 440 mg PO BID PRN 11/10/19 11/10/19 History tizanidine 4 mg PO BID PRN 11/10/19 11/10/19 History Past Med/Surg History Medical History Asthma (Chronic) Bipolar disorder (Chronic 09/19/11) Convulsions, epileptic (Chronic) IBS (irritable bowel syndrome) (Chronic) Legal blindness (Chronic 09/19/11) Migraine (Chronic) Post concussion syndrome (Chronic) Posttraumatic stress disorder (Chronic 09/19/11) Pseudoseizure (Chronic) Seizure disorder (Chronic) Tobacco use (Chronic) Surgical History History of cholecystectomy (Resolved) S/P laparoscopic hysterectomy (Resolved) Family History Father Diabetes Hypertension Skin cancer (melanoma) Mother Cancer Social History (Updated 11/10/19 @ 18:31 by SOLITARIO Alvarez) Preferred Language: Belarusian Hearing Ability: Hard of Hearing marital status: Current Living Situation: Other Current Living Situation Comment: roommate current occupational status: employed Feels Safe at Home: Yes Smoking Status: Current every day smoker Hx Alcohol Use: No Review of Systems Review of Systems: ROS per HPI, all other systems reviewed and negative Physical Exam Physical Exam: please refer to Dr. Charles's addendum for physical exam Results & Data Vital Signs (Past 12 Hours) Vital Signs Temp Pulse Pulse Resp BP BP Pulse Ox 11/10/19 17:01 65 65 24 95/65 L 98 11/10/19 17:00 68 20 95/65 L 11/10/19 16:31 64 14 11/10/19 16:30 68 20 105/69 11/10/19 16:00 67 16 11/10/19 15:45 98 11/10/19 15:30 73 16 11/10/19 15:21 77 15 11/10/19 15:15 36.8 C 73 28 H 103/71 98 Laboratory Results Short CBC 11/10/19 Range/Units 15:35 WBC 6.05 (4.8-10.8) K/uL Hgb 16.0 (12.0-16.0) g/dL Hct 46.6 (37-47) % Plt Count 195 (130-400) K/uL BMP 11/10/19 15:35 Sodium 138 Potassium 3.8 Chloride 107 Carbon Dioxide 28 BUN 10 Creatinine 0.69 Glucose 109 H Calcium 8.6 Cardiac Enzymes 11/10/19 Range/Units 15:35 Total Creatine Kinase 42 (26-192) U/L Troponin I < 0.015 (0-0.045) ng/ml Liver Function 11/10/19 Range/Units 15:35 Total Bilirubin 0.4 (0.2-1) mg/dl AST 11 L (15-37) U/L ALT 16 (12-78) U/L Alkaline Phosphatase 74 (45-117) U/L Albumin 3.6 (3.4-5.0) gm/dl Urine 11/10/19 Range/Units 17:51 Urine Color Dark Yellow Urine Appearance Clear (Clear) Urine pH 7.5 (4.5-7.5) Ur Specific [place] 1.023 (1.000-1.030) Urine Protein Negative (Negative) Urine Glucose (UA) Negative (Negative) Diagnostic Findings Head CT IMPRESSION: 1. No acute intracranial abnormality. CXR IMPRESSION: 1. No acute cardiopulmonary disease. Code Status & VTE Plan VTE Prophylaxis Plan VTE Prophylaxis will be ordered: Yes Supervising Physician Co-Signing Physician Notes 49 year old female with history of bipolar, seizure disorder, blind, asthma, IBS, tobacco use who presents to the ED with reports of slurred speech, right sided facial numbness, and right sided weakness. History and exam performed by me. Most of history obtained from caregiver who was at bedside. History significant for slurred speech, word finding difficulty, right facial numbness, right arm and leg weakness. Was reportedly last seen normal yesterday per caregiver. Patient reported she noted symptoms this AM. Stated she tripped over her dog yesterday night but did not hit her head anywhere. On physical exam General: No obvious distress Eyes: PERRL, conjunctivae normal, not pale, anicteric sclerae, EOM intact bilaterally ENMT: External ear and nose normal, oropharynx normal Neck: Normal visual inspection, no tracheal deviation, no swelling noted Respiratory: Normal respiratory effort, no respiratory distress, lungs clear to auscultation, no crackles and no wheezes Cardiovascular: Pulse is RRR. S1 S2. No murmur, no pedal edema Chest (Breasts): Chest: normal inspection of chest Gastrointestinal (Abdomen): Abdomen is not distended, soft, non-tender to palpation, no guarding, no palpable hepatosplenomegaly, normal bowel sounds Musculoskeletal: No cyanosis or clubbing, no bruises Genitourinary: No CVA tenderness Skin: No rash noted on gross inspection, No ulcers noted Neurologic: Alert and oriented x 3, dysarthria, no obvious facial droop at time of evaluation, no drift noted, no sensory deficits to touch on exam, power is 5/5 in UE and 4/5 in Right LE. Could not assess for dysdiadochokinesia due to blindness. Psychiatric: Euthymic affect, no depressed affect Lymphatic: No cervical lymphadenopathy CT head was unremarkable Possible CVA Out of window for TPA Will get CTA head and neck, MRI Brain, Get 2D Echo Get A1c and lipid panel Patient reports allergy to aspirin. Start plavix for now Neurology consult Dysphagia screening PT/OT/FIRE MARSHAL consult per stroke protocol Monitor BP Continue antiseizure medications
[2019-11-10] MEDS ORDERED: LORazepam 1 MG/2 ML VIAL IV PRN (18:10)
[2019-11-10] MEDS ORDERED: OPTIRAY 320 125ml IV PRN (19:26)
[2019-11-10] MEDS ORDERED: CLOPIDOGREL BISULFATE 75 MG TAB PO ONE (19:44)
[2019-11-10] MEDS ORDERED: TIZANIDINE HCL 4 MG TABLET PO PRN (19:44)
[2019-11-10] MEDS ORDERED: PHARMACIST DISCHARGE MED REC CONSULT PRN (19:44)
[2019-11-10] MEDS ORDERED: ACETAMINOPHEN 325 MG TAB PO PRN (19:44)
--- NOTE | 2019-11-10 19:58 | CT Scan Report ---
CT ANGIOGRAM OF THE BRAIN; CT ANGIOGRAM OF THE NECK CLINICAL HISTORY: Right-sided weakness. COMPARISON STUDY: CT of the brain dated 11/10/2019. Carotid artery ultrasound dated 04/05/2010. TECHNIQUE: Following the IV administration of 116 of Optiray 320, CT angiogram of the head and neck w as performed from the aortic arch to the vertex. Images are reviewed in the axial, sagittal, and anibal nal planes. 3-D MIPS images are created and assessed. IV contrast was administered without complicati on. All measurements were calculated based on NASCET criteria. A dose lowering technique was utilize d adhering to the principles of ALARA. The examination is compromised by motion artifact CT DOSE: 1124.44 mGy.cm FINDINGS: Brain parenchyma: The brain parenchyma is normal in appearance. There is no hemorrhage, mass effect, or evidence of acute territorial ischemia by CT criteria. There is no evidence of enhancing mass lesi on on the angiogram phase images. The ventricles, sulci, and cisterns are normal in configuration. Gr ay-white matter differentiation is preserved. No extra-axial fluid collection is seen. Thoracic aorta: Visualized portions of the thoracic aorta are normal in caliber. The aortic arch demo nstrates standard 3-vessel anatomy. Right carotid arterial system: The right common carotid artery is widely patent, as are the internal and external carotid arteries. Left carotid arterial system: The left common carotid artery is widely patent, as are the internal an d external carotid arteries. Vertebral arteries: The vertebral arteries are widely patent bilaterally and codominant. Subclavian arteries: Widely patent bilaterally. Intracranial vasculature: The internal carotid arteries are patent at the skull base, as are the ante rior and middle cerebral arteries bilaterally. There is a common origin of the anterior cerebral mary ann jc. The vertebrobasilar system and posterior cerebral arteries are widely patent. The vertebral art eries are codominant. There is no aneurysm, high-grade stenosis, or focal vessel cut off seen through out the intracranial circulation. Jugular veins: Patent bilaterally. Dural sinuses: Patent. Lung apices: Partially visualized upper lobe lung parenchyma appears clear. Soft tissues: The visualized pharyngeal soft tissues are normal in appearance noting angiographic pha se technique. The oropharyngeal airway appears widely patent. The salivary and thyroid glands are nor mal in appearance. No cervical lymphadenopathy is seen. Skeletal structures: The calvarium appears intact. The cervical spine is within normal limits. Sinuses and mastoids: The paranasal sinuses are clear. There is a moderate to large right mastoid eff usion. The left mastoid air cells are well pneumatized. IMPRESSION: 1. There is no hemorrhage, mass effect, or evidence of acute territorial ischemia by CT criteria noti ng angiographic phase technique and a motion compromised examination. 2. Unremarkable CT angiogram of the brain. 3. Unremarkable CT angiogram of the neck. ACT 112: Negative or not required by law. Electronically signed by: Brian Caraballo M.D. 11/10/2019 7:56 PM
[2019-11-10] MEDS: levETIRAcetam 500 MG TAB PO SCH (20:33)
[2019-11-10] MEDS: lamoTRIgine 100 MG TAB PO SCH (20:33)
[2019-11-10] MEDS ORDERED: ENOXAPARIN INJ 40 MG/0.4 ML SYR SQ SCH (21:00)
[2019-11-10] MEDS ORDERED: GADOBUTROL 65ML VIAL IV PRN (22:07)
--- NOTE | 2019-11-10 22:21 | Magnetic Resonance Report ---
MRI OF THE BRAIN COMBO CLINICAL HISTORY: Right face and hand numbness. COMPARISON STUDY: CT of the brain dated 11/10/2019. MRI of the brain dated 01/13/2012. TECHNIQUE: MRI of the brain was performed utilizing various T1 and T2-weighted sequences in the axial , sagittal, and coronal planes. Contrast-enhanced sequences were acquired following the administratio n of 8 cc of Gadavist. The examination is degraded by motion artifact. FINDINGS: Brain parenchyma: Minimal microangiopathic change is similar to previous. The brain parenchyma is oth erwise normal in appearance. There is no hemorrhage or mass effect. There is no restricted diffusion to suggest acute ischemia. No enhancing mass lesion is identified on the postcontrast images. Hameed-wh ite matter differentiation is preserved. No extra-axial fluid collection is seen. The cerebellar tons ils are normal in configuration. Ventricles, sulci, and cisterns: Normal in configuration. Pituitary and sella: Unremarkable. Intracranial vasculature: Normal flow voids are maintained at the skull base. Orbits: The bony orbits are grossly intact. Orbital contents are normal in appearance. Sinuses and mastoids: There is a right mastoid effusion. The left mastoid air cells and the paranasal sinuses are clear. Calvarium: Unremarkable. Cervical cord: Partially visualized cervical spinal cord is normal in morphology and signal intensity . IMPRESSION: No acute intracranial abnormality. ACT 112: Negative or not required by law. Electronically signed by: Brian Caraballo M.D. 11/10/2019 10:20 PM
--- NOTE | 2019-11-11 06:11 | Electrocardiogram Report ---
Test Reason : Blood Pressure : / mmHG Vent. Rate : 068 BPM Atrial Rate : 068 BPM P-R Int : 176 ms QRS Dur : 076 ms QT Int : 398 ms P-R-T Axes : 037 027 054 degrees QTc Int : 423 ms Normal sinus rhythm Cannot rule out Anterior infarct , age undetermined Abnormal ECG When compared with ECG of 06-SEP-2018 11:17, T wave inversion no longer evident in Inferior leads QT has shortened Confirmed by Nakul Howe ([id number]) on 11/11/2019 6:10:52 AM Referred By: REFERRED SELF Confirmed By:Nakul Howe
[2019-11-11 06:18] LABS: Estimated Average Glucose 103 mg/dl; Hemoglobin A1C 5.2 % (4.5-5.6)
[2019-11-11] MEDS ORDERED: PERFLUTREN LIPID MICROSPHERE (DEFINITY) IV ONE (07:40)
[2019-11-11 08:12] LABS: Basophils # (auto) 0.03 K/uL (0-0.2); Basophils % (auto) 0.5 %; Eosinophils # (auto) 0.14 K/uL (0-0.5); Eosinophils % (auto) 2.4 %; Hematocrit (blood only) 45.3 % (37-47); Hemoglobin 15.3 g/dL (12.0-16.0); Lymphocytes # (auto) 2.26 K/uL (1.2-3.4); Lymphocytes % (auto) 39.5 %; Mean Corpuscular Hemoglobin 31.4 pg (25-34); Mean Corpuscular Hgb Conc 33.8 g/dL (32-36); Mean Platelet Volume 10.3 fL (7.4-10.4); Monocytes # (auto) 0.35 K/uL (0.11-0.59); Monocytes % (auto) 6.1 %; Neutrophils # (auto) 2.94 K/uL (1.4-6.5); Neutrophils % (auto) 51.5 %; Platelet Count 191 K/uL (130-400); RDW Coefficient of Variation 13.2 % (11.5-14.5); RDW Standard Deviation 44.6 fL (36.4-46.3); Red Blood Count 4.87 M/uL (4.2-5.4); White Blood Count 5.72 K/uL (4.8-10.8)
[2019-11-11] MEDS: lamoTRIgine 100 MG TAB PO SCH (08:30)
[2019-11-11] MEDS: levETIRAcetam 500 MG TAB PO SCH (08:31)
[2019-11-11 08:37] LABS: Albumin Level 3.4 gm/dl (3.4-5.0); BUN Creatinine Ratio 15.4 (10-20); Calcium 8.5 mg/dl (8.5-10.1); Creatinine Clr Calc Pharmacy 114.2 ml/min; Est GFR (African American) 122.5; Est GFR (Non-African American) 105.7; Magnesium 2.3 mg/dl (1.8-2.4); Potassium 3.7 mmol/L (3.5-5.1)
[2019-11-11 08:40] LABS: Albumin Globulin Ratio 0.9 (0.9-2); Bilirubin,Total 0.7 mg/dl (0.2-1); Globulin 3.7 gm/dl (2.5-4.0); Phosphorus 3.3 mg/dl (2.5-4.9); Total Protein 7.1 gm/dl (6.4-8.2)
[2019-11-11] MEDS ORDERED: CLOPIDOGREL BISULFATE 75 MG TAB PO SCH (09:00)
--- NOTE | 2019-11-11 11:46 | Hospitalist Progress Note ---
Date of Service November 11, 2019 Assessment & Plan (1) Stroke-like symptoms: concern for Stroke-like symptoms on presentation but stroke is ruled out -as per admission history and physical on 11/11/2019 Patient presenting from home with reports of right-sided facial droop, drooling, slurred speech/word finding, right-sided weakness. patient was empirically started on Plavix 75 mg daily in case of stroke and because patient has allergy to aspirin and placed under observation for further testing: -CT head 11/10/2019: No acute intracranial abnormality -CTA Brain/Neck 11/10/2019: Unremarkable CT angiogram of the brain. Unremarkable CT angiogram of the neck. -Brain MRI: 11/10/2019: No acute intracranial abnormality -echocardiogram: no atrial septal defect, ejection fraction is 55 to 60% with grade I diastolic dysfunction with no wall motion abnormalities and no valvular pathology -patient was monitored on telemetry from 11/10/2019, telemetry reviewed on 11/11/2019 and not acute telemetry events. patient remain ins sinus rhythm -normal TSH levels, normal ionized calcium levels, normal magnesium levels -11/11/2019: patient examined by hospitalist and no gross focal motor deficits are appreciated on exam, no dysarthria. Patient has outpatient follow to primary care doctor on 11/16/2019 4:20 PM Provider Berny Sevilla MD Department General Internal Medicine [facility] [place] Visual Impairment -chronic visual impairments and is legally blind as per records -patient has service dog at the bedside -Occupational therapy assessed patient's mobility on 11/11/2019 and while patient ambulated with occupational therapist, occupational therapist recommended inpatient physical rehabilitation center in the context of balance issues with her walking and because of blindness. -discussed with oil field caser that given patient has home aides in place and also service dog, it is unclear whether a referral to a inpatient physical rehabilitation center or SNF is appropriate. manager validation to discuss with patient (2) Seizure disorder: History of Seizure disorder -Continue home doses of Keppra and Lamictal (3) DVT prophylaxis: -SQ Lovenox Subjective patient examined by hospitalist and no gross focal motor deficits are appreciated on exam, no dysarthria. patient reports chronic poor vision. no chest pain. no shortness of breath. no palpitations. no abdominal pain. no nausea. no vomiting. no headache. no dizziness Review of Systems Review of Systems: All systems reviewed & are unremarkable except as noted in HPI & below Physical Exam Constitutional: comfortable Eyes: PERRL, conjunctivae normal, anicteric sclerae EOM intact bilaterally ENMT: external ear and nose normal, oropharynx normal Neck: trachea midline Respiratory: normal respiratory effort, lungs clear to auscultation Cardiovascular: RRR, no murmur, no edema Gastrointestinal (Abdomen): normal bowel sounds, soft, nontender, no hepatosplenomegaly Musculoskeletal: Head/Neck/Chest: normocephalic and head atraumatic Neurologic: PERRL, EOMI, accommodation nl, no face palsy, no dysarthria moves all extremities Psychiatric: Orientation: alert, oriented x 3 and cooperative Results & Data Vital Signs (Past 12 Hours) Vital Signs Temp Pulse Resp BP Pulse Ox 11/11/19 07:46 36.5 C 61 18 109/62 97 11/11/19 04:30 36.6 C 60 17 93/63 L 95
--- NOTE | 2019-11-11 14:05 | Neurology Consultation ---
Date of Consultation November 11, 2019 Assessment & Plan (1) Stroke-like symptoms: 1. MRI - no acute findings 2. CTA head and neck no significant stenosis 3. she was given plavix in ED and she is allergic to aspirin- no need to continue at this time 4. continue Keppra 500 mg BID 5. continue lamictal 150 mg BID 6. history of migraines may have been a complex migraine. right sided weakness, is still present unclear what her baseline is 7. PT/OT felt she could benefit from in patient rehab but she would not be able to take her service dog 8. TTE-no ASD 9. she should follow up with Dr Medrano for any further recommendations (2) Pseudoseizure: as above (3) Convulsions, epileptic: as above (4) Migraine: 1. rizatriptan prn as directed Supervising Physician Co-Signing Physician Notes Patient was seen and examined. Agree with Mary Kern PA-C as noted below. Pricing Intern and service dog at bedside. Patient awake and alert. Continues to note right sided weakness. Had similar symptoms in the past. Reports having severe headache around the onset of the symptoms. On examine patient noted to have give way weakness in both upper and lower extremities. MRI brain reviewed and happy to report no evidence of acute ischemic stroke. CTA head and neck shows no high grade stenosis or vascular abnormality. I do not believe this was a stroke or TIA. Ok to discontinue Plavix. Differential diagnosis includes migraine with brainstem aura Vs functional disorder. Recommend to continue home medications. Recommend she follow up with her primary neurologist as an outpatient. Patient and outpatient coding specialist agreed to plan of care and had no further questions. History of Present Illness Reason for Consultation: stroke appears ruled out, patient given plavix Requesting Physician: Anshul Weinberg MD Attending Physician: Anshul Weinberg MD History of Present Illness Areli heredia a 49 year old female with a PMH bipolar disorder, epilepsy, pseudo seizure, IBS, asthma, migraine, legally blind presents to [facility] for slurred speech, right sided facial droop and numbness, and right sided weakness. She woke up very early in the morning and did not feel right. She reports the right side of her mouth was drooping, had numbness, and she was drooling. She called her caregiver who noted that her voice did not sound right and she had trouble getting her words out. When walking to the bathroom then previous evening, she tripped over her service dog. She did not strike her head and denies any loss of consciousness. She states she has a history of migraine with some numbness in her face and arm but she doesn't think there was ever weakness. She did have an headache after the episode begain. She states she sees [facility] for her seizures. She states she has had similar symptoms in the past but no stroke discovered. denies CP, SOB, abdominal pain, new bowel or bladder issues, N, V, swallowing issues. she has an aid at home and wants to go home. Allergies Allergy/AdvReac Type Severity Reaction Status Date / Time aspirin Allergy Severe stopped Verified 11/10/19 17:16 breathing per pt bee venom protein (honey bee) Allergy Severe ANAPHYLAXIS Verified 11/10/19 17:16 codeine Allergy Severe difficulty Verified 11/10/19 17:16 breathing erythromycin base Allergy Severe anaphylaxis Verified 11/10/19 17:16 ibuprofen Allergy Severe RESPIRATORY Verified 11/10/19 17:16 DIFFICULTY Penicillins Allergy Severe anaphylaxis Verified 11/10/19 17:16 valproic acid Allergy Severe "LOCK JAW" Verified 11/10/19 17:16 Cipro Allergy Intermediate SEVERE Verified 04/10/17 15:05 RASH, FLUSHING ciprofloxacin Allergy Intermediate SEVERE Verified 11/10/19 17:16 RASH, FLUSHING Influenza Virus Vaccines Allergy Intermediate Seizure Verified 11/10/19 22:22 Sulfa (Sulfonamide Allergy Intermediate HIVES TO Verified 11/10/19 17:16 Antibiotics) SULFA DRUGS latex Allergy Mild "BREAK OUT" Verified 11/10/19 17:16 tomato Allergy Unknown Unknown Verified 11/10/19 17:16 lorazepam AdvReac Intermediate AGITATED, Verified 11/10/19 17:16 HALLUCINATIONS morphine AdvReac Intermediate AGITATED, Verified 11/10/19 17:16 HALLCINATIONS terbutaline AdvReac Intermediate PASSES OUT Verified 11/10/19 17:16 acetaminophen AdvReac Unknown AFFECTS Verified 11/10/19 17:16 LIVER FUNCTION milk AdvReac Unknown "DIARRHEA" Verified 11/10/19 17:16 pneumococcal vaccine AdvReac Unknown SEIZURE Verified 11/10/19 17:16 tramadol AdvReac Unknown cannot Verified 11/10/19 17:16 take d/t hx seizures Home Medications Home Medications Medication Instructions Recorded Confirmed Type albuterol sulfate 2.5 mg INHALATION Q4 PRN 09/06/18 11/10/19 History diphenhydramine HCl [Benadryl] 25 mg PO Q4H PRN 09/06/18 11/10/19 History diphenoxylate-atropine [Lomotil] 1 tab PO QID PRN 09/06/18 11/10/19 History epinephrine [EpiPen] 0.3 mg IM Q3H PRN 09/06/18 11/10/19 History ondansetron 8 mg PO Q12H PRN 09/06/18 11/10/19 History levetiracetam 500 mg tablet 500 mg PO BID #60 tab 07/25/19 11/10/19 Rx rizatriptan 10 mg disintegrating 10 mg PO .COMPLEX #12 tab MDD 30 mg 10/10/19 11/10/19 Rx tablet lamotrigine 150 mg tablet 150 mg PO BID 30 Days #60 tab 10/17/19 11/10/19 Rx albuterol sulfate 2 inh INHALATION Q4 PRN 11/10/19 11/10/19 History tizanidine 4 mg PO BID PRN 11/10/19 11/10/19 History Patient History Medical History Asthma (Chronic) Bipolar disorder (Chronic 09/19/11) Convulsions, epileptic (Chronic) IBS (irritable bowel syndrome) (Chronic) Legal blindness (Chronic 09/19/11) Migraine (Chronic) Post concussion syndrome (Chronic) Posttraumatic stress disorder (Chronic 09/19/11) Pseudoseizure (Chronic) Seizure disorder (Chronic) Tobacco use (Chronic) Surgical History History of cholecystectomy (Resolved) S/P laparoscopic hysterectomy (Resolved) Family History Father Diabetes Hypertension Skin cancer (melanoma) Mother Cancer Social History (Updated 11/10/19 @ 18:31 by SOLITARIO Alvarez) Preferred Language: Cambodian Communication Ability: Impaired Communication Ability Comment: she can see 3 feet in front of her Hearing Ability: Hard of Hearing Jamb Cutter Required: No Beliefs That Will Affect Care: None marital status: Current Living Situation: Other Current Living Situation Comment: roommate current occupational status: employed Other Information That Helps Us Care for You: No Feels Safe at Home: Yes Safety Concerns: Feels Safe At This Time Smoking Status: Current every day smoker Tobacco Type: cigarettes ; Cigarettes Per Day: 1.5 packs/day ; Do You Dip or Chew Tobacco: No ; Second Hand Exposure: No ; Tobacco Cessation Education Requested by Patient: No Hx Alcohol Use: No Hx Substance Use: No Physical Exam Physical Exam: Physical Exam: Constitutional: appearance nourished, healthy and normal Ears, Nose, Mouth and Throat: mucous membranes moist, no injection and skin normal, eyes normal Cardiovascular: normal S-1 and S-2 and regular rate and rhythm Respiratory: clear to auscultation (CTA) and no rales, rhonchi or wheeze Musculoskeletal: no peripheral edema and good distal pulses Skin: no stigmata of neurocutaneous disease noted and normal and intact Eyes: extraocular muscles intact (EOMI) and pupils equal, round and reactive to light (PERRl) non focal NEUROLOGIC EXAMINATION: Mental status: Alert and interactive Oriented to full date and location Oriented to person Speech fluent with no evidence of aphasia Cranial Nerves facial symmetry tongue mid line Reflexes: Deep tendon reflexes were symmetrical and graded 2/5. Sensory: intact to cool and light touch Coordination: finger to nose slight dysmetric on right Gait/Stance: Posture normal. Motor: Negative for pronator drift of out stretched arms with eyes closed. Strength: hand repacker biceps triceps left 5/5, right 4+/5, hip flex plantar flex ext left 5/5, right 4+/5 Results & Data Vital Signs (Past 12 Hours) Vital Signs Temp Pulse Resp BP Pulse Ox 11/11/19 11:47 36.5 C 67 18 98/63 L 98 11/11/19 07:46 36.5 C 61 18 109/62 97 11/11/19 04:30 36.6 C 60 17 93/63 L 95 Laboratory Results Abnormal lab results 11/10/19 11/11/19 Range/Units 15:35 07:57 Glucose 109 H 101 H (70-99) mg/dl AST 11 L 8 L (15-37) U/L Diagnostic Findings CTA head/neck-. There is no hemorrhage, mass effect, or evidence of acute territorial ischemia by CT criteria noting angiographic phase technique and a motion compromised examination. Unremarkable CT angiogram of the brain. Unremarkable CT angiogram of the neck. MRI brain -No acute intracranial abnormality. TTE- 55-60% no ASD
[2019-11-11] MEDS ORDERED: STROKE PATIENT DISCHARGE STA (14:49)
--- NOTE | 2019-11-11 15:17 | Discharge Summary ---
Date of Service November 11, 2019 Admission HPI Per Admitting Provider 49 year old female who presents to the ED with reports of slurred speech, right sided facial droop and numbness, and right sided weakness. Patient reports she woke up very early this morning and did not feel right. She reports the right side of her mouth was drooping, had numbness, and she was drooling. She called her caregiver who noted that her voice did not sound right and she had trouble getting her words out. When the caregiver arrived, she noted that the patient was weak on her right side. Patient then presented to the ED for further evaluation. Patient reports that while walking to the bathroom last evening, she tripped over her service dog. She did not strike her head and denies any loss of consciousness. Patient reports she otherwise has been feeling well recently. No chest pain or shortness of breath. Denies lightheadedness, dizziness, diaphoresis. No abdominal pain, nausea, vomiting, diarrhea. She denies any urinary symptoms. In the ED, labs are unremarkable and head CT is negative for acute findings. Patient has remained hemodynamically stable. Admission Exam Per Admitting Provider General: No obvious distress Eyes: PERRL, conjunctivae normal, not pale, anicteric sclerae, EOM intact bilaterally ENMT: External ear and nose normal, oropharynx normal Neck: Normal visual inspection, no tracheal deviation, no swelling noted Respiratory: Normal respiratory effort, no respiratory distress, lungs clear to auscultation, no crackles and no wheezes Cardiovascular: Pulse is RRR. S1 S2. No murmur, no pedal edema Chest (Breasts): Chest: normal inspection of chest Gastrointestinal (Abdomen): Abdomen is not distended, soft, non-tender to palpation, no guarding, no palpable hepatosplenomegaly, normal bowel sounds Musculoskeletal: No cyanosis or clubbing, no bruises Genitourinary: No CVA tenderness Skin: No rash noted on gross inspection, No ulcers noted Neurologic: Alert and oriented x 3, dysarthria, no obvious facial droop at time of evaluation, no drift noted, no sensory deficits to touch on exam, power is 5/5 in UE and 4/5 in Right LE. Could not assess for dysdiadochokinesia due to blindness. Psychiatric: Euthymic affect, no depressed affect Lymphatic: No cervical lymphadenopathy Principal Diagnosis concern for Stroke-like symptoms on presentation but stroke is ruled out, History of Seizure disorder, Visual Impairment Discharge Exam Constitutional comfortable Eyes PERRL, conjunctivae normal, anicteric sclerae EOM intact bilaterally ENMT external ear and nose normal, oropharynx normal Neck trachea midline Respiratory normal respiratory effort, lungs clear to auscultation Cardiovascular RRR, no murmur, no edema Gastrointestinal (Abdomen) normal bowel sounds, soft, nontender, no hepatosplenomegaly Musculoskeletal Head/Neck/Chest: normocephalic and head atraumatic Neurologic PERRL, EOMI, accommodation nl, no face palsy, no dysarthria moves all extremities Psychiatric Orientation: alert, oriented x 3 and cooperative Discharge Data Allergies Allergy/AdvReac Type Severity Reaction Status Date / Time aspirin Allergy Severe stopped Verified 11/10/19 17:16 breathing per pt bee venom protein (honey bee) Allergy Severe ANAPHYLAXIS Verified 11/10/19 17:16 codeine Allergy Severe difficulty Verified 11/10/19 17:16 breathing erythromycin base Allergy Severe anaphylaxis Verified 11/10/19 17:16 ibuprofen Allergy Severe RESPIRATORY Verified 11/10/19 17:16 DIFFICULTY Penicillins Allergy Severe anaphylaxis Verified 11/10/19 17:16 valproic acid Allergy Severe "LOCK JAW" Verified 11/10/19 17:16 Cipro Allergy Intermediate SEVERE Verified 04/10/17 15:05 RASH, FLUSHING ciprofloxacin Allergy Intermediate SEVERE Verified 11/10/19 17:16 RASH, FLUSHING Influenza Virus Vaccines Allergy Intermediate Seizure Verified 11/10/19 22:22 Sulfa (Sulfonamide Allergy Intermediate HIVES TO Verified 11/10/19 17:16 Antibiotics) SULFA DRUGS latex Allergy Mild "BREAK OUT" Verified 11/10/19 17:16 tomato Allergy Unknown Unknown Verified 11/10/19 17:16 lorazepam AdvReac Intermediate AGITATED, Verified 11/10/19 17:16 HALLUCINATIONS morphine AdvReac Intermediate AGITATED, Verified 11/10/19 17:16 HALLCINATIONS terbutaline AdvReac Intermediate PASSES OUT Verified 11/10/19 17:16 acetaminophen AdvReac Unknown AFFECTS Verified 11/10/19 17:16 LIVER FUNCTION milk AdvReac Unknown "DIARRHEA" Verified 11/10/19 17:16 pneumococcal vaccine AdvReac Unknown SEIZURE Verified 11/10/19 17:16 tramadol AdvReac Unknown cannot Verified 11/10/19 17:16 take d/t hx seizures Consultations 11/10/19 17:30 ED Decision to Admit Stat 11/10/19 19:44 Consult Case Management - Discharge Planning Routine 11/11/19 11:59 Consult Neurology Routine Ordered Studies 11/10/19 15:43 CT head/brain wo con Stat 11/10/19 18:00 CT angio head w con Routine CT angio neck with con Routine MR brain wo/w con Routine Hospital Course (1) Stroke-like symptoms: concern for Stroke-like symptoms on presentation but stroke is ruled out -as per admission history and physical on 11/11/2019 Patient presenting from home with reports of right-sided facial droop, drooling, slurred speech/word finding, right-sided weakness. patient was empirically started on Plavix 75 mg daily in case of stroke and because patient has allergy to aspirin and placed under observation for further testing: -CT head 11/10/2019: No acute intracranial abnormality -CTA Brain/Neck 11/10/2019: Unremarkable CT angiogram of the brain. Unremarkable CT angiogram of the neck. -Brain MRI: 11/10/2019: No acute intracranial abnormality -echocardiogram: no atrial septal defect, ejection fraction is 55 to 60% with grade I diastolic dysfunction with no wall motion abnormalities and no valvular pathology -patient was monitored on telemetry from 11/10/2019, telemetry reviewed on 11/11/2019 and not acute telemetry events. patient remain ins sinus rhythm -normal TSH levels, normal ionized calcium levels, normal magnesium levels -11/11/2019: patient examined by hospitalist and no gross focal motor deficits are appreciated on exam, no dysarthria. -Patient has follow up appointment with primary care doctor 11/16/2019 4:20 PM Provider Berny Sevilla MD Department General Internal Medicine [facility] -Patient was seen by [facility] neurology service in the hospital admission and no plavix on discharge. Patient should follow up with usual neurologist Dr. Medrano for further evaluation Visual Impairment -chronic visual impairments and is legally blind as per records -patient has service dog at the bedside -Occupational therapy assessed patient's mobility on 11/11/2019 and while patient ambulated with occupational therapist, occupational therapist recommended inpatient physical rehabilitation center in the context of balance issues with her walking and because of blindness. -discussed with casework supervisor that given patient has home aides in place and also service dog, it is unclear whether a referral to a inpatient physical rehabilitation center or SNF is appropriate. night manager to discuss with patient (2) Seizure disorder: History of Seizure disorder -Continue home doses of Keppra and Lamictal (3) DVT prophylaxis: -SQ Lovenox Total Time Total Time Spent Total Time Spent (In Minutes): 40 minutes Total Time Includes: Examination of the Patient, Discharge Planning, Medication Reconciliation and Communication With Other Providers Discharge Plan Discharge Items Patient Disposition: Home - Home Health Services Reason For Visit: STROKE LIKE SYMPTOMS Discharge Diagnosis: concern for Stroke-like symptoms on presentation but stroke is ruled out, History of Seizure disorder, Visual Impairment Condition on Discharge: Good Activity: Resume your previous activity Non-emergency contact: Primary Care Provider Call non-emergency contact if: you have any medication questions Follow-up/Referrals: Berny Sevilla MD [Primary Care Provider] - Diet: Heart Healthy Haja Attending Provider Instructions: Patient has follow up appointment with primary care doctor 11/16/2019 4:20 PM Provider Berny Sevilla MD Department General Internal Medicine [facility] Patient was seen by [facility] neurology service in the hospital admission and no plavix on discharge. Patient should follow up with usual neurologist Dr. Medrano for further evaluation Haja [employer] Fruit Provider Instructions: concern for Stroke-like symptoms on presentation but stroke is ruled out -as per admission history and physical on 11/11/2019 Patient presenting from home with reports of right-sided facial droop, drooling, slurred speech/word finding, right-sided weakness. patient was empirically started on Plavix 75 mg daily in case of stroke and because patient has allergy to aspirin and placed under observation for further testing: -CT head 11/10/2019: No acute intracranial abnormality -CTA Brain/Neck 11/10/2019: Unremarkable CT angiogram of the brain. Unremarkable CT angiogram of the neck. -Brain MRI: 11/10/2019: No acute intracranial abnormality -echocardiogram: no atrial septal defect, ejection fraction is 55 to 60% with grade I diastolic dysfunction with no wall motion abnormalities and no valvular pathology -patient was monitored on telemetry from 11/10/2019, telemetry reviewed on 11/11/2019 and not acute telemetry events. patient remain ins sinus rhythm -normal TSH levels, normal ionized calcium levels, normal magnesium levels -11/11/2019: patient examined by hospitalist and no gross focal motor deficits are appreciated on exam, no dysarthria. Pending Studies at Discharge: No Stand-Alone Forms: [facility], Smoking Cessation Medications and DC Order Prescriptions: Continued levetiracetam 500 mg tablet 500 mg PO BID Qty: 60 RF: 5 rizatriptan 10 mg tablet,disintegrating 10 mg PO .COMPLEX MDD 30 mg Qty: 12 RF: 2 lamotrigine 150 mg tablet 150 mg PO BID 30 Days Qty: 60 RF: 0 albuterol sulfate 2.5 mg /3 mL (0.083 %) solution for nebulization 2.5 mg Inhalation Q4 PRN (Reason: Shortness Of Breath Or Wheezing) RF: 0 diphenoxylate-atropine [Lomotil] 2.5-0.025 mg Tablet 1 tab PO QID PRN (Reason: Loose Stool) RF: 0 ondansetron 8 mg tablet,disintegrating 8 mg PO Q12H PRN (Reason: Nausea) RF: 0 diphenhydramine HCl [Benadryl] 25 mg Capsule 25 mg PO Q4H PRN (Reason: Allergy Symptoms) RF: 0 epinephrine [EpiPen] 0.3 mg/0.3 mL Auto-Injector 0.3 mg IM Q3H PRN (Reason: Allergic Reaction) RF: 0 tizanidine 4 mg tablet 4 mg PO BID PRN (Reason: MUSCLE SPASMS) RF: 0 albuterol sulfate 90 mcg/actuation Hfa Aerosol Inhaler 2 inh INHALATION Q4 PRN (Reason: Wheezing) RF: 0 Discontinued naproxen sodium [Aleve] 220 mg Tablet 440 mg PO BID PRN (Reason: Pain) RF: 0 Discharge Orders: Discharge Order (Routine); Ordered 11/11/19 Ordered By: Anshul Weinberg Admission Data Admit Date/Time: 11/10/19 17:56 Attending Provider: Anshul Weinberg Admit Provider: Sparkle Charles I. Primary Care Provider: Berny Sevilla Other Providers: Sparkle Charles I. ; Asa Gregg Other Interventions: Discharge Summary Assessment (RN) Last Done: 11/11/19 15:11
== END 2019-11-11 15:50 | disposition home health service (06) ==
LOC: 2S 15:08 → ED 15:08 → SUATTDRO 17:56 → 2S 19:20